=== PATIENT | female | born 1955 | race African-American/Black ===

== ENCOUNTER 2019-09-29 00:35 | Observation (INO) | payer MEDICARE ==
[2019-09-29] MEDS ORDERED: Midazolam HCl 2 mg/2 ml Vial ONE (00:56)
[2019-09-29] MEDS ORDERED: Nitroglycerin 2% Ointment 1 INCH/1 GM Packet ONE (00:56)
[2019-09-29] MEDS ORDERED: Aspirin Chewable 81 MG TAB ONE (00:56)
[2019-09-29 01:05] LABS: #Basophils 0.1 thou/uL (0.0-0.2); #Eosinphils 0.1 thou/uL (0.0-0.7); #Lymphocytes 2.8 thou/uL (1.20-3.40); #Monocytes 0.6 thou/uL (0.11-0.59); #Neutrophils 6.3 thou/uL (1.40-6.50); %Basophils 1.3 % (0.0-1.0); %Eosinophils 0.6 % (0.0-10.0); %Lymphocytes 28.1 % (21.0-51.0); %Monocytes 6.4 % (0.0-10.0); %Neutrophils 63.7 % (42.0-75.0); Hemoglobin 12.3 g/dL (12.0-16.0); Mean Corpuscular HGB CONC 31.3 g/dL (32.0-36.0); Mean Corpuscular Volume 76.8 fL (78.0-98.0); Mean Platelet Volume 9.7 fL (7.4-10.4); Platelet Count 226 thou/uL (130-400); RBC Distribution Width 16.9 % (11.5-14.5); Red Blood Cell (RBC) Count 5.14 mill/uL (4.20-5.40); White Blood Cell (WBC) Count 9.9 thou/uL (4.8-10.8)
[2019-09-29 01:25] LABS: ALT (SGPT) 29 U/L (8-55); AST (SGOT) 42 U/L (5-34); Albumin 4.8 g/dL (3.4-4.8); Alkaline Phosphatase 111 U/L (40-110); Anion Gap 20 mmol/L (10-20); BUN (Urea Nitrogen) 11 mg/dL (9.8-20.1); Bilirubin, Total 0.5 mg/dL (0.2-1.2); Calc. Creatinine Clearance 0 mL/min (70-130); Calcium 9.7 mg/dL (7.8-10.44); Carbon Dioxide 19 mmol/L (23-31); Chloride 103 mmol/L (98-107); Estimated GFR-MDRD 50; Globulin 3.7 g/dL (2.4-3.5); Glucose 142 mg/dL (80-115); Potassium 4.4 mmol/L (3.5-5.1); Protein, Total 8.5 g/dL (6.0-8.3); Sodium 138 mmol/L (136-145)
[2019-09-29] MEDS ORDERED: Nitroglycerin 0.4 MG TAB (25 Tab Bottle) PO PRN (03:24)
[2019-09-29] MEDS ORDERED: Dextrose 5% in Water 1,000 ML IV PRN (03:26)
[2019-09-29] MEDS ORDERED: HumaLOG 300 UNITS/3 ML VIAL SC PRN ×2 (03:26)
[2019-09-29] MEDS ORDERED: Dextrose 50% Abboject 50 ML SYRINGE SLOW IVP PRN (03:26)
[2019-09-29] MEDS ORDERED: Diazepam 5 MG TAB PO PRN (03:43)
[2019-09-29] MEDS ORDERED: Thiamine HCl 200 MG/2 ML VIAL IM SCH (03:45)
[2019-09-29] MEDS ORDERED: Diazepam 5 MG TAB PO SCH (03:45)
[2019-09-29 04:05] LABS: #Lymphocytes 1.6 thou/uL (1.20-3.40); #Monocytes 0.6 thou/uL (0.11-0.59); #Neutrophils 6.1 thou/uL (1.40-6.50); %Basophils 0.5 % (0.0-1.0); %Eosinophils 0.6 % (0.0-10.0); %Lymphocytes 18.5 % (21.0-51.0); %Monocytes 7.4 % (0.0-10.0); %Neutrophils 73.1 % (42.0-75.0); Hemoglobin 11.7 g/dL (12.0-16.0); Mean Corpuscular HGB CONC 31.9 g/dL (32.0-36.0); Mean Corpuscular Hemoglobin 24.5 pg (27.0-31.0); Mean Corpuscular Volume 76.6 fL (78.0-98.0); Mean Platelet Volume 9.4 fL (7.4-10.4); Platelet Count 209 thou/uL (130-400); RBC Distribution Width 16.5 % (11.5-14.5); White Blood Cell (WBC) Count 8.4 thou/uL (4.8-10.8)
[2019-09-29] MEDS ORDERED: Lorazepam 2 MG/ML VIAL ONE (04:12)
[2019-09-29 04:35] LABS: ALT (SGPT) 23 U/L (8-55); AST (SGOT) 37 U/L (5-34); Albumin 4.4 g/dL (3.4-4.8); Alcohol Less than 10 mg/dL (Less than 10); Alkaline Phosphatase 101 U/L (40-110); Anion Gap 16 mmol/L (10-20); BUN (Urea Nitrogen) 9 mg/dL (9.8-20.1); Bilirubin, Total 0.5 mg/dL (0.2-1.2); Calc. Creatinine Clearance 0 mL/min (70-130); Calcium 9.2 mg/dL (7.8-10.44); Carbon Dioxide 22 mmol/L (23-31); Chloride 103 mmol/L (98-107); Cholesterol 218 mg/dl (< 200 Desired); Estimated GFR-MDRD 73; Globulin 3.3 g/dL (2.4-3.5); Glucose 128 mg/dL (80-115); Potassium 4.4 mmol/L (3.5-5.1); Protein, Total 7.7 g/dL (6.0-8.3); Sodium 137 mmol/L (136-145); Triglycerides 54 mg/dL (Less than 150)
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
[2019-09-29 04:52] LABS: HDL Cholesterol 152 mg/dL (>60 Neg Risk)
[2019-09-29 04:54] LABS: Cardiac Risk 1.4 (Less than 4.5)
[2019-09-29 04:56] LABS: LDL Cholesterol, Calculated 55 mg/dL
[2019-09-29 07:42] VITALS: BMI 21.1
--- NOTE | 2019-09-29 07:44 | RAD ---
EXAM: Single view of the chest HISTORY: Chest pain COMPARISON: None FINDINGS: Single view of the chest shows a normal sized cardiomediastinal silhouette. There is no dong dence of consolidation, mass, or pleural effusion. The bones are unremarkable IMPRESSION: No evidence of acute cardiopulmonary disease
[2019-09-29] MEDS ORDERED: ADENOSINE 60 MG/20 ML VIAL ONE (10:53)
[2019-09-29 13:16] LABS: SARS-CoV-2 MS2 Positive; SARS-CoV-2 N Gene Negative; SARS-CoV-2 S Gene Negative; SARS-CoV-2 by NAA Not Detected (NotDetected); SARS-CoV-2 orf1ab Negative
--- NOTE | 2019-09-29 14:02 | NM ---
NUCLEAR MEDICINE CARDIAC MYOCARDIAL PERFUSION SPECT EJECTION FRACTION STUDY WALL MOTION CINE: DATE: 09/29/2019 HISTORY: 63-year-old hypertensive diabetic female with family history of coronary artery disease presents with chest pain TECHNIQUE: Number of days: 1 Rest study: Not performed Pharmacologic stress: Adenosine dose: 35.1 mg Stress study: Technetium 99m-sestamibi (Cardiolite) dose: 27.7 mCi FINDINGS: CARDIAC (MYOCARDIAL PERFUSION) SPECT Distribution of sestamibi is homogeneous throughout the left ventricle, with no myocardial perfusion defects. EJECTION FRACTION STUDY Left ventricular EF = 85 % WALL MOTION CINE The left ventricular wall motion is normal. There is normal systolic wall thickening. IMPRESSION: Normal.
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
[2019-09-29] MEDS ORDERED: tiZANidine HCl 4 MG TAB PO PRN (14:48)
[2019-09-29 17:06] LABS: Bacteria/HPF None Seen HPF (None Seen); Bilirubin Negative (Negative); Blood, Urine Negative (Negative); Clarity Clear (Clear); Glucose, Urine (Dipstick) 500 mg/dL (Negative); Ketone, Urine Negative (Negative); Leukocyte Negative Leu/uL (Negative); Nitrite Negative (Negative); Protein, Urine (Dipstick) Negative (Neg-Trace); RBC/HPF 0-3 HPF (0-3); Specific Gravity, Urine 1.014 (1.002-1.036); Squamous Epithelial 0-3 HPF (0-3); Urobilinogen Normal mg/dL (Less than 2); WBC/HPF 0-3 HPF (0-3)
[2019-09-29 17:08] LABS: Urine Culture Reflex No No
[2019-09-29 17:25] LABS: Amphetamine Not Detected (NotDetected); Barbiturates Screen Not Detected (NotDetected); Benzodiazepine Screen Detected (NotDetected); Cocaine Metabolite Screen Not Detected (NotDetected); Medtox Control Line Valid? VALID (VALID); Medtox Reader # READER 4; Methadone Not Detected (NotDetected); Methamphetamine Not Detected (NotDetected); Opiate Screen Not Detected (NotDetected); Oxycodone Screen Not Detected (NotDetected); Phencyclidine (PCP) Not Detected (NotDetected); THC/Cannabinoid Screen Not Detected (NotDetected); Tricyclic Screen Not Detected (NotDetected)
[2019-09-29] MEDS: Multivitamin W/ Minerals 1 TAB PO SCH (17:37)
[2019-09-29] MEDS: Pantoprazole 40 MG VIAL IVP SCH ×2 (17:37→21:29)
[2019-09-29] MEDS: Folic Acid 1 MG TAB PO SCH (17:37)
[2019-09-29] MEDS: Gabapentin 300 MG CAP PO SCH ×2 (17:37→21:27)
[2019-09-29] MEDS ORDERED: Lisinopril 20 MG TAB PO SCH (21:00)
[2019-09-29] MEDS ORDERED: Prazosin HCl 1 MG CAP PO SCH (21:00)
[2019-09-29] MEDS ORDERED: [UNRECOGNIZED DRUG - OTHER] PO SCH (21:00)
[2019-09-29] MEDS ORDERED: BENAZEPRIL PO SCH (21:00)
[2019-09-29] MEDS ORDERED: AMLODIPINE BESYLATE PO SCH (21:00)
[2019-09-29] MEDS ORDERED: Amlodipine 5 MG TAB PO SCH (21:00)
[2019-09-30 03:57] LABS: Hemoglobin 11.7 g/dL (12.0-16.0); Mean Corpuscular HGB CONC 31.4 g/dL (32.0-36.0); Mean Corpuscular Hemoglobin 24.7 pg (27.0-31.0); Mean Corpuscular Volume 78.5 fL (78.0-98.0); Mean Platelet Volume 9.6 fL (7.4-10.4); Platelet Count 185 thou/uL (130-400); Red Blood Cell (RBC) Count 4.73 mill/uL (4.20-5.40); White Blood Cell (WBC) Count 5.2 thou/uL (4.8-10.8)
[2019-09-30] MEDS ORDERED: Diazepam 5 MG TAB PO PRN (04:00)
[2019-09-30 04:24] LABS: ALT (SGPT) 19 U/L (8-55); AST (SGOT) 28 U/L (5-34); Alkaline Phosphatase 91 U/L (40-110); Anion Gap 13 mmol/L (10-20); BUN (Urea Nitrogen) 11 mg/dL (9.8-20.1); Bilirubin, Total 0.4 mg/dL (0.2-1.2); Calc. Creatinine Clearance 69 mL/min (70-130); Carbon Dioxide 24 mmol/L (23-31); Chloride 100 mmol/L (98-107); Estimated GFR-MDRD 86; Globulin 3.2 g/dL (2.4-3.5); Glucose 132 mg/dL (80-115); Iron 60 ug/dL (50-170); Iron Binding Capacity, Total 424 mcg/dL (265-497); Potassium 3.9 mmol/L (3.5-5.1); Protein, Total 7.2 g/dL (6.0-8.3); Sodium 133 mmol/L (136-145)
[2019-09-30] MEDS ORDERED: Magnesium Oxide 400 MG TAB PO SCH (09:00)
[2019-09-30] MEDS ORDERED: Hydrochlorothiazide 25 MG TAB PO SCH (09:00)
[2019-09-30] MEDS ORDERED: Citalopram 20 MG TAB PO SCH (09:00)
[2019-09-30] MEDS ORDERED: Thiamine 100 MG TAB PO SCH (09:00)
[2019-09-30] MEDS: Gabapentin 300 MG CAP PO SCH ×2 (10:04→14:55)
[2019-09-30] MEDS: Multivitamin W/ Minerals 1 TAB PO SCH (10:05)
[2019-09-30] MEDS: Pantoprazole 40 MG VIAL IVP SCH (10:06)
[2019-09-30] MEDS: Folic Acid 1 MG TAB PO SCH (10:06)
[2019-09-30] MEDS ORDERED: Sodium Chloride 0.9% 500 ML IV SCH (10:15)
[2019-09-30 18:18] VITALS: BP 167/87; TEMP 97.8
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
== END 2019-09-30 17:02 | disposition home or self-care (01) ==
LOC: ERS 00:35 → ERHOLD 02:50 → 2NO 13:49
PROVIDERS: ADMIT Internal Medicine; ATTEND Internal Medicine
DX: R07.89 Other chest pain (principal); F10.239 Alcohol dependence with withdrawal, unspecified; I95.1 Orthostatic hypotension; I11.0 Hypertensive heart disease with heart failure; I50.30 Unspecified diastolic (congestive) heart failure; R42 Dizziness and giddiness; R25.1 Tremor, unspecified; E11.9 Type 2 diabetes mellitus without complications; F32.9 Major depressive disorder, single episode, unspecified; Z88.0 Allergy status to penicillin; Z79.899 Other long term (current) drug therapy
CPT/HCPCS: 71045; 78452; 80053; 80061; 80306; 80307; 81001; 82140; 82728; 82962 ×2; 83540; 83550; 83880; 84439; 84484 ×2; 85027; 85379; 93005; 93017; 93306; 94760; 96374; 96375; 97139 ×2; 99285; A9500; U0003; 36415; 36416; 84443; 85025; 87635; 96376; C9113; G0378; J0153; J2060; J2250; J3411; J3475; J3490

== ENCOUNTER 2019-12-24 09:54 | Emergency (ER) | payer MEDICARE ==
[2019-12-24] MEDS ORDERED: Ondansetron PF 4 MG/2 ML Vial ONE (10:13)
[2019-12-24] MEDS ORDERED: Ketorolac Tromethamine 30 MG/ML VIAL ONE (10:17)
[2019-12-24 10:53] LABS: Bilirubin Negative (Negative); Blood, Urine 1+ (Negative); Clarity Clear (Clear); Glucose, Urine (Dipstick) Normal (Negative); Ketone, Urine 40 mg/dL (Negative); Leukocyte Negative Leu/uL (Negative); Nitrite Negative (Negative); Protein, Urine (Dipstick) Negative (Neg-Trace); Specific Gravity, Urine 1.013 (1.002-1.036); Urobilinogen Normal mg/dL (Less than 2)
[2019-12-24 10:54] LABS: RBC/HPF 0-3 HPF (0-3); Squamous Epithelial 0-3 HPF (0-3); WBC/HPF 0-3 HPF (0-3)
[2019-12-24 11:03] LABS: Bacteria/HPF 1+ HPF (None Seen); Yeast-Budding 1+ HPF (None Seen)
[2019-12-24 11:19] LABS: ALT (SGPT) 30 U/L (8-55); AST (SGOT) 90 U/L (5-34); Albumin 4.2 g/dL (3.4-4.8); Alkaline Phosphatase 82 U/L (40-110); Anion Gap 21 mmol/L (10-20); BUN (Urea Nitrogen) 8 mg/dL (9.8-20.1); Bilirubin, Total 0.4 mg/dL (0.2-1.2); Calc. Creatinine Clearance 0 mL/min (70-130); Calcium 8.5 mg/dL (7.8-10.44); Carbon Dioxide 15 mmol/L (23-31); Chloride 105 mmol/L (98-107); Estimated GFR-MDRD Greater than 90; Globulin 2.9 g/dL (2.4-3.5); Glucose 122 mg/dL (80-115); Lipase 39 U/L (8-78); Potassium 3.9 mmol/L (3.5-5.1); Protein, Total 7.1 g/dL (6.0-8.3)
[2019-12-24 11:20] LABS: #Basophils 0.1 thou/uL (0.0-0.2); #Lymphocytes 0.6 thou/uL (1.20-3.40); #Monocytes 0.3 thou/uL (0.11-0.59); #Neutrophils 7.7 thou/uL (1.40-6.50); %Basophils 0.8 % (0.0-1.0); %Eosinophils 0.2 % (0.0-10.0); %Lymphocytes 7.4 % (21.0-51.0); %Neutrophils 88.7 % (42.0-75.0); Hemoglobin 11.5 g/dL (12.0-16.0); Mean Corpuscular HGB CONC 31.6 g/dL (32.0-36.0); Mean Corpuscular Hemoglobin 25.6 pg (27.0-31.0); Mean Platelet Volume 9.2 fL (7.4-10.4); Platelet Count 180 thou/uL (130-400); RBC Distribution Width 18.3 % (11.5-14.5); Red Blood Cell (RBC) Count 4.48 mill/uL (4.20-5.40); White Blood Cell (WBC) Count 8.7 thou/uL (4.8-10.8)
[2019-12-24 11:42] LABS: CKMB 2.8 ng/mL (0-6.6)
[2019-12-24 11:55] LABS: Sodium 137 mmol/L (136-145)
[2019-12-24] MEDS ORDERED: Promethazine HCl 25 MG/ML VIAL ONE (12:28)
[2019-12-24] MEDS ORDERED: Morphine 4 MG/ML VIAL ONE (12:28)
--- NOTE | 2019-12-24 12:42 | CT ---
CT Abdomen Pelvis W Con History: Abdominal pain Comparison: None. Findings: Lung bases are clear. No pericardial effusion. Gastric bypass surgery. Common bile duct measures 1 mm. No significant intrahepatic biliary dilatation. The pancreatic duct is mildly distended although still measures just under 3 mm. Focal insinuation of fat between the pancreatic lobular parenchyma is appearance of a small round mas s axial image 24. Mildly thickened sigmoid colon with low-grade vascular mesenteric congestion. No dilated loops of large or small bowel. The appendix is visualized and is normal. Trace free fluid in the pelvis. No acute osseous abnormality. Aortic contour is normal. Celiac trunk and superior mesenteric arteries are patent. Inferior mesenteric artery is patent. Small hiatal hernia. Ribs are intact. No hydronephrosis. Symmetric bilateral renal enhancement of the superior pole cyst on the left measur ing 15 mm. Spleen is unremarkable along with the adrenal glands. Impression: 1. Mild vascular congestion and edema within the sigmoid mesentery some low-grade wall thickening of the descending colon/sigmoid junction may reflect early findings of colitis. Nonemergent colonoscopic evaluation after treatment of the acute symptomatology recommended. 2. [place] effect common bile duct without intrahepatic biliary dilatation. 3. Small fat-containing supraumbilical ventral hernia with a thin 4 mm neck. No evidence for adjacent inflammation. 4. Prior gastric bypass surgery without evidence for obstruction.
[2019-12-24] MEDS ORDERED: Iopamidol-370 76% 500 ML 1 ML ONE (15:06)
--- NOTE | 2020-01-01 13:13 | EKG ---
Test Reason : ABD PAIN Blood Pressure : / mmHG Vent. Rate : 097 BPM Atrial Rate : 097 BPM P-R Int : 132 ms QRS Dur : 074 ms QT Int : 356 ms P-R-T Axes : 061 058 012 degrees QTc Int : 452 ms Normal sinus rhythm Septal infarct , age undetermined Abnormal ECG Confirmed by MANFRED CERVANTES DO ([id number]), communications editor JEAN CLAUDE ALFARO ([id number]) on 01/01/2020 1:12:56 PM Referred By: BILLY Confirmed By:MANFRED CERVANTES DO
== END 2019-12-24 14:55 | disposition home or self-care (01) ==
LOC: ERS 09:54
DX: R10.30 Lower abdominal pain, unspecified (principal); K52.9 Noninfective gastroenteritis and colitis, unspecified; I10 Essential (primary) hypertension; E11.9 Type 2 diabetes mellitus without complications; F32.9 Major depressive disorder, single episode, unspecified; F41.9 Anxiety disorder, unspecified; Z79.899 Other long term (current) drug therapy
CPT/HCPCS: 74177; 80053; 81003; 81015; 82553; 83690; 84484; 85025; 93005; 96374; 96375; J1885; J2270; J2405; J2550; Q9967

== ENCOUNTER 2020-01-08 12:11 | Inpatient (IN) | payer MEDICARE ==
[2020-01-08] MEDS ORDERED: Pantoprazole 40 MG VIAL ONE ×2 (13:26→14:25)
--- NOTE | 2020-01-08 13:52 | CT ---
Exam: Head CT without contrast HISTORY: Dizziness COMPARISON: none FINDINGS: Hemorrhage: No intraparenchymal hemorrhage or extra-axial hematoma. Brain parenchyma: Cortical lackey-white matter differentiation is preserved. No mass effect or midline shift. Basilar cisterns are patent. Ventricular system: Ventricles and sulci are patent and symmetric. Calvarium: Intact. Sinuses and mastoid air cells: Adequate aeration. IMPRESSION: No acute intracranial process.
[2020-01-08 14:08] LABS: #Basophils 0.1 thou/uL (0.0-0.2); #Eosinphils 0.1 thou/uL (0.0-0.7); #Lymphocytes 1.4 thou/uL (1.20-3.40); #Monocytes 0.6 thou/uL (0.11-0.59); #Neutrophils 9.2 thou/uL (1.40-6.50); %Basophils 0.7 % (0.0-1.0); %Eosinophils 0.9 % (0.0-10.0); %Lymphocytes 11.9 % (21.0-51.0); %Monocytes 5.7 % (0.0-10.0); %Neutrophils 80.8 % (42.0-75.0); Hemoglobin 7.5 g/dL (12.0-16.0); Mean Corpuscular HGB CONC 31.6 g/dL (32.0-36.0); Mean Corpuscular Hemoglobin 25.5 pg (27.0-31.0); Mean Corpuscular Volume 80.5 fL (78.0-98.0); Mean Platelet Volume 7.9 fL (7.4-10.4); Platelet Count 498 thou/uL (130-400); RBC Distribution Width 18.6 % (11.5-14.5); Red Blood Cell (RBC) Count 2.95 mill/uL (4.20-5.40); White Blood Cell (WBC) Count 11.3 thou/uL (4.8-10.8)
[2020-01-08 14:21] LABS: ALT (SGPT) 9 U/L (8-55); AST (SGOT) 13 U/L (5-34); Albumin 3.8 g/dL (3.4-4.8); Alkaline Phosphatase 83 U/L (40-110); Anion Gap 19 mmol/L (10-20); BUN (Urea Nitrogen) 72 mg/dL (9.8-20.1); Bilirubin, Total 0.2 mg/dL (0.2-1.2); Calc. Creatinine Clearance 0 mL/min (70-130); Calcium 9.1 mg/dL (7.8-10.44); Carbon Dioxide 15 mmol/L (23-31); Chloride 111 mmol/L (98-107); Estimated GFR-MDRD 17; Globulin 3.4 g/dL (2.4-3.5); Glucose 112 mg/dL (80-115); Potassium 5.2 mmol/L (3.5-5.1); Protein, Total 7.2 g/dL (6.0-8.3); Sodium 140 mmol/L (136-145)
[2020-01-08 14:40] LABS: Bilirubin Negative (Negative); Blood, Urine Negative (Negative); Clarity Clear (Clear); Glucose, Urine (Dipstick) Normal (Negative); Ketone, Urine 10 mg/dL (Negative); Leukocyte Negative Leu/uL (Negative); Nitrite Negative (Negative); Protein, Urine (Dipstick) Negative (Neg-Trace); Specific Gravity, Urine 1.013 (1.002-1.036); Urobilinogen Normal mg/dL (Less than 2)
[2020-01-08] MEDS ORDERED: Pantoprazole 80 MG, Admixture Fee 1 EACH in Sodium Chloride 0.9% 100 ML IVPB SCH (15:00)
[2020-01-08 18:20] LABS: INR-International Normal Ratio 1.1; PTT 24.7 sec (22.9-36.1); Prothrombin Time 14.8 sec (12.0-14.7)
[2020-01-08] MEDS ORDERED: Octreotide Acetate 1,250 MCG in Sodium Chloride 0.9% 250 ML 250 ML IVPB SCH (18:30)
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
[2020-01-08] MEDS ORDERED: Ondansetron ODT 4 MG TAB PO PRN (19:15)
[2020-01-08] MEDS ORDERED: Acetaminophen 650 MG Suppository PR PRN (19:15)
[2020-01-08] MEDS ORDERED: Guaifenesin DM 100-10/5 ML UDCUP PO PRN (19:15)
[2020-01-08] MEDS ORDERED: Pantoprazole 80 MG in Sodium Chloride 0.9% 100 ML IVPB SCH (19:15)
[2020-01-08] MEDS ORDERED: Senokot S 8.6-50 MG TAB PO PRN (19:15)
[2020-01-08] MEDS ORDERED: Ondansetron PF 4 MG/2 ML Vial IVP PRN (19:15)
[2020-01-08] MEDS ORDERED: Diazepam 5 MG TAB PO PRN (19:18)
[2020-01-08] MEDS ORDERED: Thiamine HCl 200 MG/2 ML VIAL IM SCH (19:30)
[2020-01-08] MEDS: Sodium Chloride 0.9% 1,000 ML IV SCH (21:05)
--- NOTE | 2020-01-08 21:54 | CON ---
DATE OF CONSULTATION: 01/08/2020 REASON FOR CONSULTATION: Melena, hematemesis with history of cirrhosis. CONSULTING PROVIDER: Dr. Marcos Parikh. HISTORY OF PRESENT ILLNESS: The patient is a 64-year-old female with past medical history of hypertension; diabetes; anxiety; depression; alcohol abuse; obesity, status post gastric bypass in 2008; and cirrhosis, presenting with complaints of abdominal pain, hematemesis, and melena. She states that she was in her usual state of health until approximately 2 weeks ago when she had acute onset of lower abdominal pain affecting the right and left lower quadrants. She was subsequently seen in the [facility] for further evaluation and had a CT scan at that time showing evidence of possible sigmoid colitis. She was ultimately placed on ciprofloxacin and metronidazole and after 3 to 4 days, had complete resolution of her abdominal pain. However, she was seen by her primary care physician in the meantime with discontinuation of the ciprofloxacin. With only taking the metronidazole, the patient began to have increasing nausea and vomiting to the point where the patient vomited up bright red blood only once in addition to the appearance of having dark black liquid stools over the last few days. She states that over the last 3 days, she would have approximately 15 to 20 small volume solid to semi-solid black stools per day with increased difficulty in wiping herself and cleaning herself afterwards. She denies any overt hematochezia or bright red blood per rectum, however, and she also states that her abdominal pain had completely resolved by this time as well. She is currently taking tizanidine for chronic pain in addition to gabapentin. She does also take a baby aspirin every day, but denies any further use of NSAIDs. She also states that she has been drinking approximately one glass of wine daily in addition to a mixed drink every 2 to 3 days knowing that this is deleterious with a patient who has cirrhosis. She also endorses increased nausea, but no vomiting since the initial episode of hematemesis. She currently denies any fevers, chills, abdominal pain, dysphagia, odynophagia, or weight loss. However, with the increasing black stools and concern for bleeding and in addition to increased fatigue, it prompted the patient to go to the [facility] ER for further evaluation. On evaluation during this ER visit, she was noted to have a decrease in her hemoglobin and hematocrit with an approximate 3 to 4 units decrease raising concern for active GI bleeding. She was subsequently admitted to the hospital for further evaluation. REVIEW OF SYSTEMS: A 10-category review of systems was obtained with all responses negative except for the pertinent positives as listed in HPI. PAST MEDICAL HISTORY: As per HPI. PAST SURGICAL HISTORY: Gastric bypass in 2008 (unknown type of bypass). FAMILY HISTORY: Denies any GI malignancies. SOCIAL HISTORY: Drinks approximately one glass of wine daily and one mixed drink every 2 to 3 days (however, during her last ER visit, she was drinking 3 glasses of wine daily). She denies any tobacco or illicit drug use. OUTPATIENT MEDICATIONS: Reviewed. ALLERGIES: PENICILLIN. PHYSICAL EXAMINATION: VITAL SIGNS: Temperature was not placed in the chart, but heart rate was 86, blood pressure 156/86, respiratory rate 16, saturating 97% on room air. GENERAL: The patient was lying in bed, in no acute distress. Alert and oriented x4. HEENT: Normocephalic and atraumatic. NECK: Supple. No JVD or scleral icterus noted. CARDIOVASCULAR: Regular rate and rhythm with no discernible murmurs, gallops, or rubs. RESPIRATORY: Clear to auscultation bilaterally with no discernible wheezes or rales. ABDOMEN: Normoactive bowel sounds. Soft, nondistended. Mild tenderness to palpation in the midepigastric region. EXTREMITIES: No cyanosis, clubbing, or edema. LABORATORY DATA: CBC with a white blood cell count of 11.3, hemoglobin 7.5, hematocrit 23.7, platelets 498, MCV 80, RDW 18. Chemistry with a sodium of 140, potassium 5.2, chloride 111, CO2 of 15, BUN 72, creatinine 3.3, glucose 112, AST 13, ALT 9, alkaline phosphatase 83, total bilirubin 0.2, albumin 3.8. IMAGING DATA: CT of the abdomen and pelvis was obtained on December 24, 2019, which showed surgical change consistent with gastric bypass. She did have some possible small pancreatic mass within the head of the pancreas, but was incompletely determined/characterized. Mildly thickened mucosa or wall of the sigmoid colon was seen with low-grade vascular mesenteric congestion and she did also have the presence of a small hiatal hernia. ASSESSMENT AND PLAN: The patient is a 64-year-old female with past medical history of hypertension; diabetes; anxiety; depression; alcohol abuse; obesity, status post gastric bypass and cirrhosis of the liver, presenting with hematemesis and melena concerning for gastrointestinal bleeding. 1. Gastrointestinal bleeding: The patient is presenting with a single episode of overt hematemesis in addition to multiple small volume black solid bowel movements over the last 2 to 3 days. This was also associated with a decrease in her H and H when compared to 2 weeks ago and when seen with an elevated BUN to creatinine ratio in addition to mild hyperkalemia, it is strongly concerning for an upper gastrointestinal bleed. She has never had an upper endoscopy since the diagnosis of cirrhosis, so it is unknown whether or not this patient even has esophageal varices. Given her platelet count of 498, it is less likely for the formation, but should be prevented against nonetheless. Recommendations: a. Would continue to trend her H and H and transfuse as necessary to maintain an H and H of 09/13. b. Continue to monitor clinically for signs of active GI bleeding. c. Agree with placing the patient on a PPI drip. d. Would place the patient on octreotide drip in addition to placing her on ciprofloxacin 400 b.i.d. for esophageal varices and infection prophylaxis respectively (the patient has a penicillin allergy). e. Would stop any SSRIs at this time given the increased risk of bleeding associated with these medications, especially with NSAIDs. f. We will make the patient n.p.o. at midnight with plans for upper endoscopy tomorrow morning for further evaluation. Further recommendations to follow upper endoscopy. 2. Cirrhosis: The patient is presenting with a previous diagnosis of cirrhosis that was diagnosed in 2012 with unknown findings at that time as the patient was being cared for at the [facility] in [place]. Over the next few years, the patient followed with a gyn/train dispatcher in [place], but after losing her PCP has not gone back for any further followup. At this point, it is unknown if she has esophageal varices or portal hypertensive gastropathy as a result of her cirrhosis. However, she did have a colonoscopy approximately 4-1/2 years ago with normal findings per patient. Currently, she denies any history of ascites, hepatic encephalopathy, or lower extremity edema. Recommendations: a. I will need to confer with Radiology about cirrhotic morphology on a most recent CT scan and confirm the diagnosis via that. b. Per imaging, she does not have any evidence of splenomegaly either making the likelihood of portal hypertension less so. c. Would attempt to obtain the records from [facility], but this is more port for outpatient purposes. d. Will be undergoing EGD tomorrow for screening for esophageal varices. e. The patient will need followup as an outpatient after this inpatient hospitalization for further management of her cirrhosis (if confirmed). We will continue to follow. Please call with any questions. Job ID: [id number]
[2020-01-09] MEDS ORDERED: Diazepam 5 MG TAB PO PRN (04:00)
[2020-01-09 06:21] LABS: #Basophils 0.1 thou/uL (0.0-0.2); #Eosinphils 0.1 thou/uL (0.0-0.7); #Lymphocytes 2.1 thou/uL (1.20-3.40); #Monocytes 0.8 thou/uL (0.11-0.59); #Neutrophils 6.5 thou/uL (1.40-6.50); %Basophils 0.7 % (0.0-1.0); %Eosinophils 1.3 % (0.0-10.0); %Lymphocytes 21.7 % (21.0-51.0); %Monocytes 7.9 % (0.0-10.0); %Neutrophils 68.4 % (42.0-75.0); Hemoglobin 6.7 g/dL (12.0-16.0); Mean Corpuscular HGB CONC 31.2 g/dL (32.0-36.0); Mean Corpuscular Hemoglobin 26.4 pg (27.0-31.0); Mean Corpuscular Volume 84.6 fL (78.0-98.0); Mean Platelet Volume 7.9 fL (7.4-10.4); Platelet Count 430 thou/uL (130-400); RBC Distribution Width 17.8 % (11.5-14.5); Red Blood Cell (RBC) Count 2.54 mill/uL (4.20-5.40); White Blood Cell (WBC) Count 9.5 thou/uL (4.8-10.8)
[2020-01-09 06:45] LABS: Anion Gap 14 mmol/L (10-20); BUN (Urea Nitrogen) 75 mg/dL (9.8-20.1); Calc. Creatinine Clearance 24 mL/min (70-130); Calcium 8.2 mg/dL (7.8-10.44); Carbon Dioxide 17 mmol/L (23-31); Chloride 113 mmol/L (98-107); Estimated GFR-MDRD 22; Glucose 107 mg/dL (80-115); Potassium 5.1 mmol/L (3.5-5.1); Sodium 139 mmol/L (136-145)
[2020-01-09] MEDS: Sodium Chloride 0.9% 1,000 ML IV SCH (08:58)
[2020-01-09] MEDS: Thiamine 100 MG TAB PO SCH (09:01)
[2020-01-09] MEDS: Folic Acid 1 MG TAB PO SCH (09:01)
[2020-01-09] MEDS: Multivitamin W/ Minerals 1 TAB PO SCH (09:01)
[2020-01-09] MEDS: Magnesium Oxide 400 MG TAB PO SCH (09:01)
[2020-01-09 10:27] LABS: SARS-CoV-2 MS2 Positive; SARS-CoV-2 N Gene Negative; SARS-CoV-2 S Gene Negative; SARS-CoV-2 by NAA Not Detected (NotDetected); SARS-CoV-2 orf1ab Negative
[2020-01-09] MEDS: Sodium Bicarbonate 150 MEQ in Dextrose 5% in Water 1,000 ML IV SCH (12:14)
[2020-01-09] MEDS ORDERED: PROPOFOL 200 MG/20 ML VIAL ONE (13:23)
--- NOTE | 2020-01-09 13:56 | PDOC.HOSPP ---
- Subjective Encounter Date: 01/09/20 Encounter Time: 10:15 Subjective: says is still having black stools, no nausea is npo for egd today no hematemesis or sob or abd pain - Objective Vital Signs & Weight: Vital Signs (12 hours) Temp Pulse Pulse Resp BP BP BP 01/09/20 12:05 98.4 F 99 20 142/82 H 01/09/20 09:20 98.3 F 80 20 135/74 01/09/20 07:23 97.8 F 85 18 124/77 01/09/20 04:11 97.9 F 68 18 101/64 101/64 Pulse Ox 01/09/20 12:05 97 01/09/20 09:20 98 01/09/20 07:23 100 01/09/20 04:11 100 Weight Weight 157 lb 13.616 oz I&O: 01/08/20 01/09/20 01/10/20 06:59 06:59 06:59 Intake Total 1449 0 Balance 1449 0 Result Diagrams: 01/09/20 06:02 01/09/20 06:02 Hospitalist ROS - Medication Medications: Active Medications Generic Name Dose Route Start Last Admin Trade Name Freq PRN Reason Stop Dose Admin Folic Acid 1 mg 01/09/20 09:00 01/09/20 09:01 Folic Acid 1 Mg Tab PO 1 mg DAILY RANDY Administration Ciprofloxacin/Dextrose 400 mg/ 200 mls @ 200 mls/hr 01/08/20 21:00 01/09/20 08:58 Device IVPB 200 mls Q12HR RANDY Administration Sodium Bicarbonate 150 meq/ 1,150 mls @ 100 mls/hr 01/09/20 11:00 01/09/20 12:14 Dextrose/Water IV 1,150 mls INF RANDY Administration Iron/Minerals/Multivitamins 1 tab 01/09/20 09:00 01/09/20 09:01 Multivitamin W/ Minerals 1 Tab PO 1 tab DAILY RANDY Administration Magnesium Oxide 400 mg 01/09/20 09:00 01/09/20 09:01 Magnesium Oxide 400 Mg Tab PO 400 mg DAILY RANDY Administration Thiamine HCl 100 mg 01/09/20 09:00 01/09/20 09:01 Thiamine 100 Mg Tab PO 100 mg DAILY RANDY Administration - Exam General Appearance: awake alert Eye: PERRL, anicteric sclera ENT: no oropharyngeal lesions, moist mucosa Neck: supple, no JVD Heart: RRR, no murmur Respiratory: no wheezes, no rales Gastrointestinal: soft, non-tender, non-distended, normal bowel sounds Extremities: no cyanosis, no edema Neurological: cranial nerve grossly intact, no focal deficits Psychiatric: normal affect, A&O x 3 Hosp A/P (1) GI bleed Code(s): K92.2 - GASTROINTESTINAL HEMORRHAGE, UNSPECIFIED Status: Acute Qualifiers: GI bleed type/associated pathology: unspecified gastrointestinal hemorrhage type Qualified Code(s): K92.2 - Gastrointestinal hemorrhage, unspecified (2) Acute blood loss anemia Code(s): D62 - ACUTE POSTHEMORRHAGIC ANEMIA Status: Acute (3) NILAM (acute kidney injury) Code(s): N17.9 - ACUTE KIDNEY FAILURE, UNSPECIFIED Status: Acute (4) Alcohol abuse Code(s): F10.10 - ALCOHOL ABUSE, UNCOMPLICATED Status: Chronic (5) Cirrhosis of liver Code(s): K74.60 - UNSPECIFIED CIRRHOSIS OF LIVER Status: Chronic Qualifiers: Hepatic cirrhosis type: alcoholic cirrhosis Ascites presence: without ascites Qualified Code(s): K70.30 - Alcoholic cirrhosis of liver without ascites (6) HTN (hypertension) Code(s): I10 - ESSENTIAL (PRIMARY) HYPERTENSION Status: Chronic Qualifiers: Hypertension type: essential hypertension Qualified Code(s): I10 - Essential (primary) hypertension (7) Metabolic acidosis Code(s): E87.2 - ACIDOSIS Status: Acute - Plan will recieve 2nd unit of prbc today for egd today counselled reg complete cessation of alcohol continue protonix, octreotide drip, bicarb with iv fluids hemostable
--- NOTE | 2020-01-09 15:07 | OP ---
DATE OF PROCEDURE: 01/09/2020 PROCEDURE PERFORMED: Esophagogastroduodenoscopy with control of hemorrhage. INDICATION FOR PROCEDURE: Melena and hematemesis. DESCRIPTION OF PROCEDURE: After the risks and benefits of the procedure were explained to the patient including risks of bleeding, infection, perforation, reactions to anesthesia, aspiration, and/or pain, informed consent was obtained. The patient was then taken to the endoscopy suite, where she was maneuvered into the left lateral decubitus position, followed by introduction of deep sedation via propofol and anesthesia support. Once adequate sedation was achieved, the standard gastroscope was introduced into the mouth with the intubation of the esophagus, stomach, and the proximal jejunum with the findings listed below. The patient tolerated the procedure well, but did have a very transient bout of hypoxemia in the middle of the procedure that responded almost immediately to [id number]. Upon conclusion of the procedure, all equipment was removed from the patient and she was transferred to PACU in satisfactory condition. FINDINGS: Esophagus: Normal-appearing mucosa was seen in the proximal and mid esophagus; however, at the gastroesophageal junction/Z-line, there was mildly increased mucosal erythema in a circumferential pattern around the GE junction along the inferior aspect of the GE junction, there was an area of actively oozing blood that did actually stop with direct visualization. However, given her recent bouts of melena, this was intervened upon with argon plasma coagulation with good hemostasis achieved. Otherwise, the diaphragmatic pinch was seen at 44 cm while the gastroesophageal junction was seen at 42 cm denoting a 2 cm hiatal hernia. Otherwise, there was no evidence of erosions, ulcerations, or mass lesions. Stomach: Upon entry into the stomach, surgical change consistent with a Clyde-en-Y gastric bypass was seen. The gastric pouch itself was fairly small, but a clean based 4 to 5 mm ulcer was seen at the gastrojejunal anastomosis with a dark red spot in the middle of the ulceration itself. She did not have any adherent clot nor was there any evidence of active bleeding. However, given this red spot as a high-risk stigmata bleeding, it was intervened upon with bipolar cauterization with no bleeding at the end of the maneuver. Otherwise, a small retained staple was seen just superior to this ulceration, but no other abnormalities were found. The rest of the anastomosis looked very healthy with no evidence of further erosion, ulceration, or active/recent bleeding. Small bowel/jejunum: Upon intubation of the afferent limb, there was normal-appearing mucosa with a blind stump at the afferent side. Upon evaluation of the efferent limb to approximately 60 cm past the incisors, normal-appearing mucosa was seen without any evidence of active or recent bleeding. IMPRESSION: 1. LA grade A/B reflux mediated erosive esophagitis with mild oozing of blood at the GE junction, status post APC/argon plasma coagulation with good hemostasis achieved. 2. A 4 to 5 mm gastrojejunal anastomosis ulceration with high-risk stigmata of recent bleeding status post bipolar cauterization with good hemostasis. 3. A 2 cm hiatal hernia. 4. No evidence of esophageal or gastric varices. RECOMMENDATIONS: 1. Would continue to trend the patient's H and H and transfuse as necessary to maintain an H and H of 7/. 2. Continue to monitor clinically for signs of active GI bleeding. 3. We will continue patient on PPI, but can transfer from a drip to 40 mg IV b.i.d. 4. Would discontinue the octreotide drip given the lack of evidence showing esophageal or gastric varices. 5. Would continue the patient on ciprofloxacin 400 mg b.i.d. in light of a cirrhotic patient with GI bleed (with penicillin allergy). 6. Would place the patient on a full liquid diet and advance as tolerated. 7. If the patient continues to have melenic type stools or continued drop in her H and H, I would consider a tagged red cell scan for further evaluation and/or colonoscopy. We will continue to follow. Please call with any questions. Job ID: [id number]
[2020-01-09] MEDS: Pantoprazole 40 MG VIAL IVP SCH (20:57)
[2020-01-09] MEDS ORDERED: FLU VACC QS2020-21(65YR UP)/PF 240 MCG/0.7 ML SYRINGE IM ONE (21:00)
[2020-01-10] MEDS: Sodium Bicarbonate 150 MEQ in Dextrose 5% in Water 1,000 ML IV SCH (03:50)
[2020-01-10 06:25] LABS: Hemoglobin 7.3 g/dL (12.0-16.0); Mean Corpuscular HGB CONC 31.8 g/dL (32.0-36.0); Mean Corpuscular Hemoglobin 27.1 pg (27.0-31.0); Mean Corpuscular Volume 85.2 fL (78.0-98.0); Mean Platelet Volume 7.8 fL (7.4-10.4); Platelet Count 408 thou/uL (130-400); RBC Distribution Width 17.4 % (11.5-14.5); Red Blood Cell (RBC) Count 2.68 mill/uL (4.20-5.40)
[2020-01-10 06:30] LABS: INR-International Normal Ratio 1.1; Prothrombin Time 14.2 sec (12.0-14.7)
[2020-01-10 06:47] LABS: Albumin 2.9 g/dL (3.4-4.8); Anion Gap 10 mmol/L (10-20); BUN (Urea Nitrogen) 36 mg/dL (9.8-20.1); Calc. Creatinine Clearance 31 mL/min (70-130); Calcium 7.7 mg/dL (7.8-10.44); Carbon Dioxide 26 mmol/L (23-31); Chloride 108 mmol/L (98-107); Estimated GFR-MDRD 30; Glucose 135 mg/dL (80-115); Magnesium 1.8 mg/dL (1.6-2.6); Phosphorus 2.5 mg/dL (2.3-4.7); Potassium 4.3 mmol/L (3.5-5.1); Sodium 140 mmol/L (136-145)
[2020-01-10] MEDS: Multivitamin W/ Minerals 1 TAB PO SCH (08:18)
[2020-01-10] MEDS: Pantoprazole 40 MG VIAL IVP SCH ×2 (08:18→20:35)
[2020-01-10] MEDS: Acetaminophen 325 MG TAB PO PRN (08:18)
[2020-01-10] MEDS: Folic Acid 1 MG TAB PO SCH (08:18)
[2020-01-10] MEDS: Magnesium Oxide 400 MG TAB PO SCH (08:18)
[2020-01-10] MEDS: Thiamine 100 MG TAB PO SCH (08:18)
--- NOTE | 2020-01-10 10:51 | PRG ---
DATE OF SERVICE: 01/10/2020 REASON FOR CONSULTATION: Melena and hematemesis. SUBJECTIVE: The patient underwent upper endoscopy yesterday with the finding of LA grade A/B reflux esophagitis with mild oozing of blood at the GE junction that was intervened upon with APC. She also had 4 to 5 mm gastrojejunal ulceration with a red spot indicative of recent bleeding, which was ultimately intervened upon with bipolar cauterization. Since the upper endoscopy yesterday, she did have 1 episode of a runny black stool, but has not had any further episode since. Otherwise, she states that she is doing well with no events or problems overnight. Currently, she denies any nausea, vomiting, fevers, chills, hematemesis, melena, or hematochezia. OBJECTIVE: VITAL SIGNS: Temperature 98.6, pulse 83, blood pressure 128/78, respiratory rate 18, saturating 100% on room air. GENERAL: The patient is lying in bed, in no acute distress. Alert and oriented x4. CARDIOVASCULAR: Regular rate and rhythm. RESPIRATORY: Clear to auscultation bilaterally. ABDOMEN: Normoactive bowel sounds. Soft, nontender, nondistended. EXTREMITIES: No cyanosis, clubbing, or edema. LABORATORY DATA: CBC with a white blood cell count of 10, hemoglobin 7.3, hematocrit 22.8, platelets 408. INR 1.1. Chemistry with a sodium of 140, potassium 4.3, chloride 108, CO2 of 26, BUN 36, creatinine 2, glucose 135. IMAGING DATA: The patient underwent upper endoscopy on January 09, 2020, which showed LA grade A/B reflux mediated erosive esophagitis with mild oozing at the GE junction that was successfully intervened upon with argon plasma coagulation. She also had 4 to 5 mm gastrojejunal anastomosis ulceration that was fairly clean based, but did have a red spot in the middle of it concerning for recent bleeding as such it was subsequently intervened upon with bipolar cauterization with good hemostasis achieved as well. The last finding was a 2 cm hiatal hernia, but no evidence of Samuel ulcerations or erosions. ASSESSMENT AND PLAN: The patient is a 64-year-old female with past medical history of hypertension, diabetes, anxiety, depression, alcohol abuse, obesity status post gastric bypass, and cirrhosis of the liver (?), presenting with hematemesis and melena concerning for GI bleeding. GI bleeding/gastric ulcer. The patient initially presented with a single episode of hematemesis in addition to multiple small volume black solid bowel movements concerning in addition to a decrease in her hemoglobin and hematocrit, concerning for an upper GI bleeding. She subsequently underwent an upper endoscopy on January 09, 2020, which showed an anastomosis, a gastrojejunal anastomotic ulcer with high-risk stigmata bleeding in addition to oozing of blood at the gastroesophageal junction. These were both intervened upon with bipolar cauterization and argon plasma coagulation respectively. Since that time, she has only had one further episodes of melenic type stool with no further bleeding after that. However, she did have a drop in her hemoglobin and hematocrit, which could be indicative of equilibration of her total body blood volume, but we will need further monitoring for possible continued bleeding. Recommendations; 1. Would continue to trend her hemoglobin and hematocrit and transfuse as necessary to maintain hemoglobin and hematocrit of 7/21. 2. Continue to monitor clinically for signs of active GI bleeding. 3. Continue the patient on pantoprazole 40 mg IV b.i.d. 4. Would advance her diet as tolerated. Cirrhosis. The patient is presenting with a previous diagnosis of cirrhosis that was diagnosed in 2012 while being monitored at [facility] in [place]. However, on review of the patient's labs and upper endoscopy during this admission, the patient does not have any objective evidence of cirrhosis at this time including no evidence of cirrhotic morphology on imaging. No derangement in her hepatic synthetic function, thrombocytopenia, or esophageal varices/portal hypertensive gastropathy on upper endoscopy. Upon conferring with the patient, she states that while being followed by electromechanical equipment assembler in [place], [place], she was told that she was "cured." At this time, it raises suspicion for missed diagnosis of this condition initially, but unfortunately records not available for review at this time. Recommendations; 1. Would attempt to obtain records from [facility] regarding care for her cirrhosis. 2. The patient will ultimately need outpatient followup for possible cirrhosis once discharged from the hospital. We will continue to follow. Please call with any questions. Job ID: [id number]
--- NOTE | 2020-01-10 12:56 | PDOC.NEPPN ---
- Subjective Encounter Date: 01/10/20 Subjective: Seen in follow up for NILAM. Feeling better. No further emesis. Tolerating clear liquid diet. - Objective Vital Signs & Weight: Vital Signs (12 hours) Temp Pulse Resp BP BP Pulse Ox 01/10/20 08:00 100 01/10/20 07:52 98.6 F 83 18 128/78 100 01/10/20 04:00 98.2 F 86 20 103/61 103/61 99 Weight Weight 157 lb 13.616 oz I&O: 01/09/20 01/10/20 01/11/20 06:59 06:59 06:59 Intake Total 1449 2350 Balance 1449 2350 Result Diagrams: 01/10/20 05:52 01/10/20 05:52 Nephrology ROS - Medication Medications: Active Medications Generic Name Dose Route Start Last Admin Trade Name Freq PRN Reason Stop Dose Admin Acetaminophen 650 mg 01/08/20 19:15 01/10/20 08:18 Acetaminophen 325 Mg Tab PO 650 mg Q4H PRN Administration Headache/Fever/Mild Pain (1-3) Folic Acid 1 mg 01/09/20 09:00 01/10/20 08:18 Folic Acid 1 Mg Tab PO 1 mg DAILY RANDY Administration Ciprofloxacin/Dextrose 400 mg/ 200 mls @ 200 mls/hr 01/08/20 21:00 01/10/20 08:19 Device IVPB 200 mls Q12HR RANDY Administration Sodium Bicarbonate 150 meq/ 1,150 mls @ 100 mls/hr 01/09/20 11:00 01/10/20 03:50 Dextrose/Water IV 1,150 mls INF RANDY Administration Iron/Minerals/Multivitamins 1 tab 01/09/20 09:00 01/10/20 08:18 Multivitamin W/ Minerals 1 Tab PO 1 tab DAILY RANDY Administration Magnesium Oxide 400 mg 01/09/20 09:00 01/10/20 08:18 Magnesium Oxide 400 Mg Tab PO 400 mg DAILY RANDY Administration Pantoprazole Sodium 40 mg 01/09/20 21:00 01/10/20 08:18 Pantoprazole 40 Mg Vial IVP 40 mg Q12HR RANDY Administration Thiamine HCl 100 mg 01/09/20 09:00 01/10/20 08:18 Thiamine 100 Mg Tab PO 100 mg DAILY RANDY Administration - Exam General Appearance: awake alert Eye: anicteric sclera ENT: normocephalic atraumatic, dry oral mucosa Neck: supple, symmetric, no JVD Respiratory: CTAB Cardiovascular: RRR Gastrointestinal: soft, non-tender, non-distended, normal bowel sounds Extremities: no cyanosis, no edema Neurological: CN's grossly intact, no focal deficits PSYCH: A&O x 3 Nephrology Results - Labs Result Diagrams: 01/10/20 05:52 01/10/20 05:52 Lab results: WBC 10.0 thou/uL (4.8-10.8) 01/10/20 05:52 Hgb 7.3 g/dL (12.0-16.0) L 01/10/20 05:52 Hct 22.8 % (36.0-47.0) L 01/10/20 05:52 MCV 85.2 fL (78.0-98.0) 01/10/20 05:52 Plt Count 408 thou/uL (130-400) H 01/10/20 05:52 Neutrophils % 68.4 % (42.0-75.0) 01/09/20 06:02 Sodium 140 mmol/L (136-145) 01/10/20 05:52 Potassium 4.3 mmol/L (3.5-5.1) 01/10/20 05:52 Chloride 108 mmol/L (98-107) H 01/10/20 05:52 Carbon Dioxide 26 mmol/L (23-31) 01/10/20 05:52 BUN 36 mg/dL (9.8-20.1) H 01/10/20 05:52 Creatinine 2.00 mg/dL (0.6-1.1) H 01/10/20 05:52 Glucose 135 mg/dL (80-115) H 01/10/20 05:52 Calcium 7.7 mg/dL (7.8-10.44) L 01/10/20 05:52 Total Bilirubin 0.2 mg/dL (0.2-1.2) 01/08/20 13:53 AST 13 U/L (5-34) 01/08/20 13:53 ALT 9 U/L (8-55) 01/08/20 13:53 Alkaline Phosphatase 83 U/L (40-110) 01/08/20 13:53 Serum Total Protein 7.2 g/dL (6.0-8.3) 01/08/20 13:53 Albumin 2.9 g/dL (3.4-4.8) L 01/10/20 05:52 Urine Ketones 10 mg/dL (Negative) A 01/08/20 14:17 Urine Blood Negative (Negative) 01/08/20 14:17 Urine Nitrite Negative (Negative) 01/08/20 14:17 Ur Leukocyte Esterase Negative Nadriy/uL (Negative) 01/08/20 14:17 Sodium 140 mmol/L (136-145) 01/10/20 05:52 Potassium 4.3 mmol/L (3.5-5.1) 01/10/20 05:52 Chloride 108 mmol/L (98-107) H 01/10/20 05:52 Carbon Dioxide 26 mmol/L (23-31) 01/10/20 05:52 Anion Gap 10 mmol/L (10-20) 01/10/20 05:52 BUN 36 mg/dL (9.8-20.1) H 01/10/20 05:52 Creatinine 2.00 mg/dL (0.6-1.1) H 01/10/20 05:52 Glucose 135 mg/dL (80-115) H 01/10/20 05:52 Calcium 7.7 mg/dL (7.8-10.44) L 01/10/20 05:52 Phosphorus 2.5 mg/dL (2.3-4.7) 01/10/20 05:52 Magnesium 1.8 mg/dL (1.6-2.6) 01/10/20 05:52 Albumin 2.9 g/dL (3.4-4.8) L 01/10/20 05:52 Nephrology AP PN - Plan NILAM: Due to volume depletion from diuretic therapy, poor oral intake, GI losses and acute blood loss in a patient taking ACEI. Improving with IVF. Metabolic acidosis. Hyperkalemia Azotemia Acute GI bleeding Acute blood loss anemia HTN Plan Continue sodium bicarbonate infusion. Union oral intake. Continue to hold diuretic and ACEI Get orthostatic vitals. Recheck renal function in the am.
--- NOTE | 2020-01-10 13:44 | PDOC.HOSPP ---
- Subjective Encounter Date: 01/10/20 Encounter Time: 08:15 Subjective: no wu bleeding or hematemesis is tolerating liq diet is amb in room had some black stool last evening - Objective Vital Signs & Weight: Vital Signs (12 hours) Temp Pulse Resp BP BP BP BP 01/10/20 12:56 98.3 F 81 16 146/80 H 146/79 H 145/80 H 01/10/20 08:00 01/10/20 07:52 98.6 F 83 18 128/78 01/10/20 04:00 98.2 F 86 20 103/61 103/61 Pulse Ox 01/10/20 12:56 100 01/10/20 08:00 100 01/10/20 07:52 100 01/10/20 04:00 99 Weight Weight 157 lb 13.616 oz I&O: 01/09/20 01/10/20 01/11/20 06:59 06:59 06:59 Intake Total 1449 2350 Balance 1449 2350 Result Diagrams: 01/10/20 05:52 01/10/20 05:52 Hospitalist ROS - Medication Medications: Active Medications Generic Name Dose Route Start Last Admin Trade Name Freq PRN Reason Stop Dose Admin Acetaminophen 650 mg 01/08/20 19:15 01/10/20 08:18 Acetaminophen 325 Mg Tab PO 650 mg Q4H PRN Administration Headache/Fever/Mild Pain (1-3) Folic Acid 1 mg 01/09/20 09:00 01/10/20 08:18 Folic Acid 1 Mg Tab PO 1 mg DAILY RANDY Administration Ciprofloxacin/Dextrose 400 mg/ 200 mls @ 200 mls/hr 01/08/20 21:00 01/10/20 08:19 Device IVPB 200 mls Q12HR RANDY Administration Sodium Bicarbonate 150 meq/ 1,150 mls @ 100 mls/hr 01/09/20 11:00 01/10/20 03:50 Dextrose/Water IV 1,150 mls INF RANDY Administration Iron/Minerals/Multivitamins 1 tab 01/09/20 09:00 01/10/20 08:18 Multivitamin W/ Minerals 1 Tab PO 1 tab DAILY RANDY Administration Magnesium Oxide 400 mg 01/09/20 09:00 01/10/20 08:18 Magnesium Oxide 400 Mg Tab PO 400 mg DAILY RANDY Administration Pantoprazole Sodium 40 mg 01/09/20 21:00 01/10/20 08:18 Pantoprazole 40 Mg Vial IVP 40 mg Q12HR RANDY Administration Thiamine HCl 100 mg 01/09/20 09:00 01/10/20 08:18 Thiamine 100 Mg Tab PO 100 mg DAILY RANDY Administration - Exam General Appearance: awake alert Eye: PERRL, anicteric sclera ENT: no oropharyngeal lesions, moist mucosa Neck: supple, no JVD Heart: RRR, no murmur Respiratory: no wheezes, no rales Gastrointestinal: soft, non-tender, non-distended, normal bowel sounds Extremities: no cyanosis, no edema Neurological: cranial nerve grossly intact, no focal deficits Psychiatric: normal affect, A&O x 3 Hosp A/P (1) GI bleed Code(s): K92.2 - GASTROINTESTINAL HEMORRHAGE, UNSPECIFIED Status: Acute Qualifiers: GI bleed type/associated pathology: gastrojejunal ulcer Qualified Code(s): K28.4 - Chronic or unspecified gastrojejunal ulcer with hemorrhage (2) Acute blood loss anemia Code(s): D62 - ACUTE POSTHEMORRHAGIC ANEMIA Status: Acute (3) NILAM (acute kidney injury) Code(s): N17.9 - ACUTE KIDNEY FAILURE, UNSPECIFIED Status: Acute (4) Alcohol abuse Code(s): F10.10 - ALCOHOL ABUSE, UNCOMPLICATED Status: Chronic (5) Cirrhosis of liver Code(s): K74.60 - UNSPECIFIED CIRRHOSIS OF LIVER Status: Chronic Qualifiers: Hepatic cirrhosis type: alcoholic cirrhosis Ascites presence: without ascites Qualified Code(s): K70.30 - Alcoholic cirrhosis of liver without ascites (6) HTN (hypertension) Code(s): I10 - ESSENTIAL (PRIMARY) HYPERTENSION Status: Chronic Qualifiers: Hypertension type: essential hypertension Qualified Code(s): I10 - Essential (primary) hypertension (7) Metabolic acidosis Code(s): E87.2 - ACIDOSIS Status: Acute - Plan has had total of 2 units of prbc this admission, will check H/H in am. EGD results noted counselled reg complete cessation of alcohol continue protonix, oral iron, cipro. renal function is slowly trending down to baseline, ?ckd hemostable
--- NOTE | 2020-01-10 13:46 | CON ---
DATE OF CONSULTATION: 01/10/2020 SERVICE: Nephrology. REASON FOR CONSULTATION: Acute kidney injury. REQUESTING PHYSICIAN: Reina France MD CHIEF COMPLAINT: Melena and hematemesis. HISTORY OF PRESENT ILLNESS: A 64-year-old female with known history of hypertension, diabetes, liver cirrhosis, as well as obesity, status post gastric bypass, complicated by prior PUD, admitted with acute onset of nausea and vomiting associated with hematemesis and melena as well as lightheadedness. The patient reportedly developed abdominal pain about 2 weeks prior to presentation and was found to have features suggestive of acute sigmoid colitis, hence was started on metronidazole and ciprofloxacin with resolution of abdominal pain. However, the patient subsequently developed nausea and vomiting, which was later was associated with hematemesis and melena. The patient had multiple episodes associated with lightheadedness, hence presentation to the ER. She was found to have acute blood loss anemia requiring blood transfusion and resuscitation with IV fluid. The patient also was found to have elevated creatinine of 3.30 on presentation, which was a huge increase from 0.69 two weeks prior, hence Nephrology consult. The patient denied NSAID use, though admitted to low-dose aspirin use. She also was taking tizanidine and Neurontin for chronic pain. She denied fever, chest pain, headache, dysuria, or hematuria. PAST MEDICAL HISTORY: 1. Hypertension. 2. Obesity, status post gastric bypass in 2008. 3. Liver cirrhosis. 4. Depression. 5. Diabetes type 2. Resolved following gastric bypass. 6. Bleeding ulcer several years back. 7. Anxiety and depression. 8. Rheumatoid arthritis. PAST SURGICAL HISTORY: Gastric bypass in 2008. FAMILY HISTORY: Significant for diabetes and high blood pressure as well as heart disease in relatives. SOCIAL HISTORY: The patient currently uses alcohol sparingly. She, however, used to use alcohol heavily, and in fact, had alcoholic liver cirrhosis. She denied tobacco or illicit drug use. ALLERGIES: PENICILLIN. PRIOR TO HOSPITAL MEDICATIONS: As follows; 1. Citalopram 40 mg daily at bedtime. 2. Gabapentin 600 mg t.i.d. 3. Hydrochlorothiazide 25 mg p.o. daily. 4. Imitrex 100 mg p.o. b.i.d. 5. Amlodipine/benazepril 1 capsule p.o. daily at bedtime. 6. Meclizine 25 mg p.o. daily at bedtime. 7. Tizanidine 4 mg p.o. b.i.d. p.r.n. for pain. 8. Wellbutrin 150 mg p.o. daily. 9. Folic acid 1 mg p.o. daily. 10. Prazosin 1 mg daily at bedtime. 11. Thiamine 100 mg p.o. daily. CURRENT HOSPITAL MEDICATIONS: As follows; 1. Ciprofloxacin 400 mg q.12 hours. 2. Normal saline infusion. 3. Protonix IV push q.12 hours. 4. Folic acid 1 mg p.o. daily. 5. Magnesium oxide 400 mg p.o. daily. 6. Multivitamin 1 tablet p.o. daily. 7. Thiamine 100 mg p.o. daily. 8. Zofran p.r.n. REVIEW OF SYSTEMS: 12-point review of systems performed was negative other than pertinent positives and negatives included in the history of present illness. PHYSICAL EXAMINATION: VITAL SIGNS: Temperature 98.4, SpO2 of 98% on room air, pulse 93, blood pressure 141/80. I and O in the last 24 hours showed total intake of 1449, output was not recorded. GENERAL: Female patient, in no obvious distress. Afebrile, anicteric, and acyanotic. HEENT: Normocephalic, atraumatic. Oral mucosa is mildly dry. NECK: Supple with no JVD. CARDIOVASCULAR: Regular rhythm and rate with normal heart sounds 1 and 2. RESPIRATORY: Fair air entry bilaterally with no obvious crackles, rhonchi, or use of accessory muscles. GI: Full, soft, nontender, nondistended with normal bowel sounds. EXTREMITIES: Grossly normal looking, atraumatic with no obvious edema or erythema. FIELD SERVICES MANAGER: Conscious, alert, oriented x3 with appropriate mental status. Cranial nerves 2 through 12 are grossly intact. The patient moves all extremities. DIAGNOSTIC DATA: CBC showed WBC count of 9.5, hemoglobin of 6.7, MCV of 84.6, platelets of 430. Of note, hemoglobin on presentation was 7.5, which is a huge drop from 11.5 on December 24, 2019. Chemistry today showed sodium 139, potassium 5.1, chloride 113, CO2 of 17, BUN 75, creatinine 2.65, calcium 8.2, glucose 107. Of note, on presentation, sodium was 140, potassium 5.2, chloride 111, CO2 of 15, BUN 72, creatinine 3.3. On December 24, 2019, creatinine was 0.6. Urinalysis on presentation showed colorless clear urine with pH of 5.0, specific gravity of 1.013, negative protein, blood, nitrite, bilirubin, and leukocyte esterase. ASSESSMENT: 1. Acute kidney injury: This is most likely due to hemodynamic factors related to volume depletion and acute blood loss. Contribution from diuretic and DORIAN inhibitor cannot be ruled out. Creatinine is beginning to trend down with fluid resuscitation. 2. Metabolic acidosis: Most likely due to acute kidney injury. Gastrointestinal losses due to frequent loose stools cannot be ruled out. 3. Marked azotemia with BUN of 75: Worse from 72 on presentation. Despite trending down creatinine: GI bleeding and volume depletion, most likely . 4. Hypertension: Control is fair. 5. Acute blood loss anemia. 6. Acute gastrointestinal bleeding. PLAN: 1. We will substitute normal saline with sodium bicarbonate in view of marked hyperchloremia and high anion gap metabolic acidosis. 2. We will avoid nephrotoxic agents. 3. We will also check magnesium and phosphorus and replete as indicated. 4. We will recheck renal function test in the morning. 5. We will monitor blood pressure closely with a view to starting some antihypertensives if indicated. Further treatment to follow depending on hospital course. Many thanks for involving us in the care of this patient. We will follow along with you. Job ID: [id number]
[2020-01-10] MEDS: Ciprofloxacin 500 MG TAB PO SCH (20:34)
[2020-01-11] MEDS: Ciprofloxacin 500 MG TAB PO SCH (05:59)
[2020-01-11] MEDS: Acetaminophen 325 MG TAB PO PRN (06:03)
[2020-01-11 06:09] LABS: #Basophils 0.1 thou/uL (0.0-0.2); #Eosinphils 0.1 thou/uL (0.0-0.7); #Lymphocytes 1.4 thou/uL (1.20-3.40); #Monocytes 0.5 thou/uL (0.11-0.59); #Neutrophils 6.6 thou/uL (1.40-6.50); %Basophils 0.6 % (0.0-1.0); %Eosinophils 1.3 % (0.0-10.0); %Lymphocytes 16.5 % (21.0-51.0); %Monocytes 5.3 % (0.0-10.0); %Neutrophils 76.2 % (42.0-75.0); Mean Corpuscular Hemoglobin 27.2 pg (27.0-31.0); Mean Corpuscular Volume 84.9 fL (78.0-98.0); Mean Platelet Volume 7.9 fL (7.4-10.4); Platelet Count 438 thou/uL (130-400); RBC Distribution Width 17.1 % (11.5-14.5); Red Blood Cell (RBC) Count 2.96 mill/uL (4.20-5.40); White Blood Cell (WBC) Count 8.7 thou/uL (4.8-10.8)
[2020-01-11 06:32] LABS: Albumin 3.2 g/dL (3.4-4.8); Anion Gap 15 mmol/L (10-20); BUN (Urea Nitrogen) 20 mg/dL (9.8-20.1); BUN/Creatinine Ratio 10.93; Calc. Creatinine Clearance 34 mL/min (70-130); Calcium 8.1 mg/dL (7.8-10.44); Carbon Dioxide 25 mmol/L (23-31); Chloride 106 mmol/L (98-107); Estimated GFR-MDRD 33; Glucose 106 mg/dL (80-115); Phosphorus 2.9 mg/dL (2.3-4.7); Potassium 4.2 mmol/L (3.5-5.1); Sodium 142 mmol/L (136-145)
[2020-01-11] MEDS: Magnesium Oxide 400 MG TAB PO SCH (07:35)
[2020-01-11] MEDS: Pantoprazole 40 MG VIAL IVP SCH (07:35)
[2020-01-11] MEDS: Folic Acid 1 MG TAB PO SCH (07:36)
[2020-01-11] MEDS: Multivitamin W/ Minerals 1 TAB PO SCH (07:36)
[2020-01-11] MEDS: Thiamine 100 MG TAB PO SCH (07:36)
[2020-01-11 14:27] VITALS: BP 143/66; TEMP 98.2
--- NOTE | 2020-01-11 14:56 | PDOC.NEPPN ---
- Subjective Encounter Date: 01/11/20 Subjective: Seen in follow for NILAM. Nausea, vomiting and weakness has resolved. Tolerating oral intake. - Objective Vital Signs & Weight: Vital Signs (12 hours) Temp Pulse Resp BP Pulse Ox 01/11/20 14:26 98.2 F 87 16 143/66 H 100 01/11/20 11:30 98.0 F 80 18 151/84 H 100 01/11/20 08:00 97.9 F 74 18 134/77 100 Weight Weight 157 lb 13.616 oz I&O: 01/10/20 01/11/20 01/12/20 06:59 06:59 06:59 Intake Total 2350 Balance 2350 Result Diagrams: 01/11/20 05:32 01/11/20 05:32 - Exam General Appearance: awake alert Eye: anicteric sclera ENT: normocephalic atraumatic, moist mucosa Neck: supple, symmetric, no JVD Respiratory: CTAB Cardiovascular: RRR Gastrointestinal: soft, non-tender, non-distended, normal bowel sounds Extremities: no edema Neurological: CN's grossly intact PSYCH: normal affect, A&O x 3 Nephrology Results - Labs Result Diagrams: 01/11/20 05:32 01/11/20 05:32 Lab results: WBC 8.7 thou/uL (4.8-10.8) 01/11/20 05:32 Hgb 8.0 g/dL (12.0-16.0) L 01/11/20 05:32 Hct 25.1 % (36.0-47.0) L 01/11/20 05:32 MCV 84.9 fL (78.0-98.0) 01/11/20 05:32 Plt Count 438 thou/uL (130-400) H 01/11/20 05:32 Neutrophils % 76.2 % (42.0-75.0) H 01/11/20 05:32 Sodium 142 mmol/L (136-145) 01/11/20 05:32 Potassium 4.2 mmol/L (3.5-5.1) 01/11/20 05:32 Chloride 106 mmol/L (98-107) 01/11/20 05:32 Carbon Dioxide 25 mmol/L (23-31) 01/11/20 05:32 BUN 20 mg/dL (9.8-20.1) 01/11/20 05:32 Creatinine 1.83 mg/dL (0.6-1.1) H 01/11/20 05:32 Glucose 106 mg/dL (80-115) 01/11/20 05:32 Calcium 8.1 mg/dL (7.8-10.44) 01/11/20 05:32 Total Bilirubin 0.2 mg/dL (0.2-1.2) 01/08/20 13:53 AST 13 U/L (5-34) 01/08/20 13:53 ALT 9 U/L (8-55) 01/08/20 13:53 Alkaline Phosphatase 83 U/L (40-110) 01/08/20 13:53 Serum Total Protein 7.2 g/dL (6.0-8.3) 01/08/20 13:53 Albumin 3.2 g/dL (3.4-4.8) L 01/11/20 05:32 Urine Ketones 10 mg/dL (Negative) A 01/08/20 14:17 Urine Blood Negative (Negative) 01/08/20 14:17 Urine Nitrite Negative (Negative) 01/08/20 14:17 Ur Leukocyte Esterase Negative Andriy/uL (Negative) 01/08/20 14:17 Sodium 142 mmol/L (136-145) 01/11/20 05:32 Potassium 4.2 mmol/L (3.5-5.1) 01/11/20 05:32 Chloride 106 mmol/L (98-107) 01/11/20 05:32 Carbon Dioxide 25 mmol/L (23-31) 01/11/20 05:32 Anion Gap 15 mmol/L (10-20) 01/11/20 05:32 BUN 20 mg/dL (9.8-20.1) 01/11/20 05:32 Creatinine 1.83 mg/dL (0.6-1.1) H 01/11/20 05:32 Glucose 106 mg/dL (80-115) 01/11/20 05:32 Calcium 8.1 mg/dL (7.8-10.44) 01/11/20 05:32 Phosphorus 2.9 mg/dL (2.3-4.7) 01/11/20 05:32 Magnesium 1.8 mg/dL (1.6-2.6) 01/10/20 05:52 Albumin 3.2 g/dL (3.4-4.8) L 01/11/20 05:32 Nephrology AP PN - Plan NILAM: Due to volume depletion from diuretic therapy, poor oral intake, GI losses and acute blood loss in a patient taking ACEI. Improving but not back to baseline Metabolic acidosis. Hyperkalemia Azotemia Acute GI bleeding Acute blood loss anemia HTN Plan [place] oral intake BP Control with amlodipine Continue to hold diuretic and ACEI Can be discharged from nephrology point of view. Follow up with repeat RFT in 1 week.
--- NOTE | 2020-01-11 15:06 | DIS ---
DATE OF ADMISSION: 01/08/2020 DATE OF DISCHARGE: 01/11/2020 DISCHARGE DISPOSITION: To home. PRIMARY DISCHARGE DIAGNOSES: GI bleed with anastomotic ulcer at the gastrojejunal site from prior gastric bypass, acute blood loss anemia, acute kidney injury, alcohol abuse, cirrhosis of liver. SECONDARY DISCHARGE DIAGNOSES: Metabolic acidosis secondary to acute kidney injury, resolving; hypertension. PROCEDURES DONE DURING HOSPITALIZATION: CT brain on admission showed no acute intracranial process. Upper endoscopy done on 01/09/[address] Kevin Garcia showed LA grade A/B reflux-mediated erosive esophagitis with mild oozing of blood at the gastroesophageal junction, status post APC/argon plasma coagulation with good hemostasis. 4 to 5 mm gastrojejunal anastomotic ulceration with high-risk stigmata of recent bleeding, status post bipolar cauterization with good hemostasis. 2 cm hiatal hernia was seen. No evidence of esophageal or gastric varices was seen. H and H had dropped down to 6.7 and 21 on the . Discharge H and H of 8 and 25, platelet count 438 on the day of discharge, MCV 84. PT/INR 14 and 1.1, PTT 24. BUN and creatinine were 72 and 3.3 on admission. Discharge BUN and creatinine of 20 and 1.8. Albumin 3.2. COVID-19 PCR was not detected on 01/08/2020. DISCHARGE MEDICATIONS: 1. Protonix 40 mg p.o. twice daily. 2. Ferrous sulfate 325 mg p.o. twice daily. 3. Folic acid 1 mg p.o. daily. 4. Thiamine 100 mg p.o. daily. 5. Sumatriptan p.r.n. 6. Bupropion extended release 150 mg p.o. q.a.m. 7. Meclizine 25 mg p.o. q.p.m. 8. Lotrel 5/40 mg one capsule at bedtime. 9. Gabapentin 600 mg p.o. 3 times daily. 10. Citalopram 40 mg p.o. q.p.m. ALLERGIES: ALLERGIC TO PENICILLIN. DISCHARGE PLAN: The patient to follow up with Dr. Kevin Garcia in 3 to 4 weeks. She needs to follow up with her primary care physician at [facility] in 1 week to follow up with Dr. Garcia on 01/18/2020 at 11:30 a.m. BRIEF COURSE DURING HOSPITALIZATION: The patient initially came to ER with complaints of black stools and dizziness with weakness. She was suspected to have GI bleed with history of alcohol abuse. The patient also had elevated BUN-creatinine ratio suggestive of GI bleed. She has had consultation with Dr. Kevin Garcia for Gastroenterology. The patient initially was placed on octreotide and Protonix drips. Upper endoscopy findings have been revealed above. There was no varices noted. Her octreotide was discontinued and the patient continued on Protonix twice daily. She has had serial H and H done. The patient also received 2 units of packed cell transfusion during her stay here. Her H and H have remained stable. She is tolerating oral solid diet. She is having black stool mixed with brown regular stools at the time of discharge with no active blood as such in the stool. Her acute kidney injury has almost resolved. Likely, the patient has underlying chronic kidney disease and will need to follow up with Dr. Garcia in the outpatient setting. She was counseled against drinking any amount of alcohol. She needs follow up with Dr. Kevin Garcia in 3 to 4 weeks. Oral iron and Protonix prescriptions were given for her. She is hemodynamically stable, ambulating and eating well prior to discharge. Please note, I have seen and examined the patient on the day of discharge. Job ID: [id number]
--- NOTE | 2020-01-11 16:00 | PRG ---
DATE OF SERVICE: 01/11/2020 SUBJECTIVE: Ms. Hooper is feeling well. Ms. Hooper has had no further bleeding. She is still having some dark stools. She is eating well. PHYSICAL EXAMINATION: VITAL SIGNS: Blood pressure is 143/66, temperature 98.2, pulse is 87. LUNGS: Clear. HEART: Regular without clicks or murmurs. ABDOMEN: Soft, nontender. LABORATORY DATA: White count is 8.7; hemoglobin is 8, up from 6.7 on 01/08, 7.5 on 01/07. potassium 4.2, BUN and creatinine are 20 and 1.83, improved. ASSESSMENT: Gastrointestinal bleed secondary to anastomotic ulcer, status post cautery, 2 cm hiatal hernia reflux esophagitis. RECOMMENDATION: The patient can go home with her PPI therapy. Carafate would not be unreasonable to add in. She has persistent problem. She should avoid all alcohol, NSAIDs, and tobacco use. She can follow up Dr. Garcia in our office in 2 weeks. Job ID: [id number]
== END 2020-01-11 14:41 | disposition home or self-care (01) | DRG 378 ==
LOC: ERS 12:11 → T4-A 16:12
PROVIDERS: ADMIT Emergency Medicine; ATTEND Internal Medicine
PROC: 30233N1 Transfusion of Nonautologous Red Blood Cells into Peripheral Vein, Percutaneous Approach (ICD-10-PCS; 2020-01-08)
PROC: 3E02340 Introduction of Influenza Vaccine into Muscle, Percutaneous Approach (ICD-10-PCS; 2020-01-08)
PROC: 0W3P8ZZ Control Bleeding in Gastrointestinal Tract, Via Natural or Artificial Opening Endoscopic (ICD-10-PCS; principal; 2020-01-09)
DX: K28.4 Chronic or unspecified gastrojejunal ulcer with hemorrhage (principal); D62 Acute posthemorrhagic anemia; N17.9 Acute kidney failure, unspecified; E87.2 Acidosis; Z20.828 Contact with and (suspected) exposure to other viral communicable diseases; K21.01 Gastro-esophageal reflux disease with esophagitis, with bleeding; N18.9 Chronic kidney disease, unspecified; K70.30 Alcoholic cirrhosis of liver without ascites; F41.9 Anxiety disorder, unspecified; F32.9 Major depressive disorder, single episode, unspecified; F10.20 Alcohol dependence, uncomplicated; K44.9 Diaphragmatic hernia without obstruction or gangrene; E86.9 Volume depletion, unspecified; I12.9 Hypertensive chronic kidney disease with stage 1 through stage 4 chronic kidney disease, or unspecified chronic kidney disease; M06.9 Rheumatoid arthritis, unspecified; Z23 Encounter for immunization; Z88.0 Allergy status to penicillin; Z79.899 Other long term (current) drug therapy
CPT/HCPCS: 36415; 36430; 51701; 70450; 80048; 80053; 80069; 81003; 82274; 83735; 85025; 85027; 85610; 85730; 86850; 86900; 86901; 87635; 90471; 90662; 96365; 96366; 96376; C9113; G0008; J0744; J2704; J3411; J3475; J3490; J7070; P9016; U0003

== ENCOUNTER 2020-04-29 09:11 | Emergency (ER) | payer MEDICARE ==
[2020-04-29] MEDS ORDERED: Ondansetron PF 4 MG/2 ML Vial ONE (09:25)
[2020-04-29] MEDS ORDERED: Pantoprazole 40 MG VIAL ONE (10:02)
[2020-04-29 10:14] LABS: Hemoglobin 14.1 g/dL (12.0-16.0); Mean Corpuscular Hemoglobin 25.3 pg (27.0-31.0); Red Blood Cell (RBC) Count 5.58 mill/uL (4.20-5.40)
[2020-04-29 10:20] LABS: #Lymphocytes 1.2 thou/uL (1.20-3.40); #Monocytes 0.2 thou/uL (0.11-0.59); #Neutrophils 4.7 thou/uL (1.40-6.50); %Basophils 0.6 % (0.0-1.0); %Eosinophils 0.1 % (0.0-10.0); %Lymphocytes 19.6 % (21.0-51.0); %Monocytes 2.9 % (0.0-10.0); %Neutrophils 76.9 % (42.0-75.0); Anisocytosis SLIGHT = 6-15 cells (100X) (0-5/hpf); Hypochromia SLIGHT = 6-15 cells (100X) (0-5/hpf); Lymphocytes 24 % (21-51); MDiff Complete? YES; Mean Corpuscular HGB CONC 33.3 g/dL (32.0-36.0); Mean Platelet Volume 10.9 fL (7.4-10.4); Neutrophil 76 % (42-75); Platelet Count 198 thou/uL (130-400); Platelet Morphology Comment Appears Adequate; RBC Distribution Width 15.7 % (11.5-14.5); Target Cells SLIGHT = 2-5 cells (100X) (0-1/hpf); White Blood Cell (WBC) Count 6.1 thou/uL (4.8-10.8)
[2020-04-29 10:40] LABS: Bilirubin Negative (Negative); Blood, Urine Trace (Negative); Clarity Clear (Clear); Glucose, Urine (Dipstick) Normal (Negative); Ketone, Urine 10 mg/dL (Negative); Leukocyte 500 Leu/uL (Negative); Nitrite Negative (Negative); Protein, Urine (Dipstick) 10 mg/dL (Neg-Trace); RBC/HPF 0-3 HPF (0-3); Specific Gravity, Urine 1.022 (1.002-1.036); Squamous Epithelial 0-3 HPF (0-3); Urobilinogen Normal mg/dL (Less than 2)
[2020-04-29 10:53] LABS: Bacteria/HPF 1+ HPF (None Seen)
[2020-04-29 11:02] LABS: ALT (SGPT) 69 U/L (8-55); AST (SGOT) 121 U/L (5-34); Albumin 3.5 g/dL (3.4-4.8); Alkaline Phosphatase 78 U/L (40-110); Anion Gap 19 mmol/L (10-20); BUN (Urea Nitrogen) 13 mg/dL (9.8-20.1); Bilirubin, Total 0.7 mg/dL (0.2-1.2); Calc. Creatinine Clearance 0 mL/min (70-130); Calcium 7.7 mg/dL (7.8-10.44); Carbon Dioxide 18 mmol/L (23-31); Chloride 104 mmol/L (98-107); Globulin 2.8 g/dL (2.4-3.5); Glucose 161 mg/dL (80-115); Lipase 122 U/L (8-78); Potassium 4.1 mmol/L (3.5-5.1); Protein, Total 6.3 g/dL (5.8-8.1); Sodium 137 mmol/L (136-145)
[2020-04-29] MEDS ORDERED: Iopamidol-370 76% 500 ML 1 ML ONE (12:02)
[2020-04-29] MEDS ORDERED: Iopamidol 370 76% 50 ML VIAL FS ONE (12:02)
[2020-04-29] MEDS ORDERED: Morphine 10 MG/ML VIAL ONE (12:28)
== END 2020-04-29 15:25 | disposition home or self-care (01) ==
LOC: ERS 09:11
DX: N39.0 Urinary tract infection, site not specified (principal); R94.5 Abnormal results of liver function studies; I10 Essential (primary) hypertension; Z79.899 Other long term (current) drug therapy
CPT/HCPCS: 36415; 74177; 80053; 81003; 81015; 83690; 84484; 85025; 93005; 96361; 96372; 96374; 96375; C9113; J0500; J2270; J2405; Q9967

== ENCOUNTER 2020-05-06 21:39 | Inpatient (IN) | payer MEDICARE ==
[2020-05-06 23:06] LABS: Bilirubin Negative (Negative); Blood, Urine Negative (Negative); Clarity Turbid (Clear); Glucose, Urine (Dipstick) Normal (Negative); Ketone, Urine Negative (Negative); Leukocyte Negative Leu/uL (Negative); Nitrite Negative (Negative); Protein, Urine (Dipstick) Negative (Neg-Trace); Specific Gravity, Urine 1.015 (1.002-1.036); Urobilinogen Normal mg/dL (Less than 2); pH, Urine 5.5 (5.0-9.0)
[2020-05-07 00:08] LABS: Hemoglobin 13.8 g/dL (12.0-16.0); Mean Corpuscular HGB CONC 33.7 g/dL (32.0-36.0); Mean Corpuscular Hemoglobin 26.1 pg (27.0-31.0); Mean Corpuscular Volume 77.5 fL (78.0-98.0); Platelet Count 212 thou/uL (130-400)
[2020-05-07 00:09] LABS: Albumin 3.4 g/dL (3.4-4.8)
[2020-05-07 00:10] LABS: Chloride 100 mmol/L (98-107); Sodium 132 mmol/L (136-145)
[2020-05-07 00:11] LABS: Calcium 7.7 mg/dL (7.8-10.44); Glucose 159 mg/dL (80-115)
[2020-05-07 00:12] LABS: Globulin 3.2 g/dL (2.4-3.5); Protein, Total 6.6 g/dL (5.8-8.1)
[2020-05-07 00:13] LABS: Anion Gap 21 mmol/L (10-20); Bilirubin, Total 1.4 mg/dL (0.2-1.2); Carbon Dioxide 15 mmol/L (23-31)
[2020-05-07 00:14] LABS: Alkaline Phosphatase 120 U/L (40-110)
[2020-05-07 00:15] LABS: Calc. Creatinine Clearance 0 mL/min (70-130)
[2020-05-07 00:16] LABS: BUN (Urea Nitrogen) 15 mg/dL (9.8-20.1)
[2020-05-07 00:17] LABS: ALT (SGPT) 134 U/L (8-55); AST (SGOT) 982 U/L (5-34)
[2020-05-07 00:18] LABS: Lipase 231 U/L (8-78)
[2020-05-07 00:48] LABS: Band 15 % (5-11); Lymphocytes 8 % (21-51); MDiff Complete? YES; Monocytes 6 % (0-10); Neutrophil 70 % (42-75); Nucleated RBC 2 % (0)
[2020-05-07] MEDS ORDERED: Morphine 4 MG/ML VIAL ONE (01:44)
[2020-05-07] MEDS ORDERED: Ondansetron PF 4 MG/2 ML Vial ONE (01:44)
[2020-05-07] MEDS ORDERED: Sodium Chloride 0.9% 1,000 ML IV SCH ×2 (03:30→04:00)
[2020-05-07 04:11] VITALS: BMI 27.0
[2020-05-07] MEDS ORDERED: GoLYTELY 4,000 ml Bottle PO SCH (07:15)
[2020-05-07] MEDS ORDERED: Mag-Al 1200 mg/1200 mg/30 ML UDCUP PO SCH (08:00)
[2020-05-07 08:05] LABS: Lactic Acid 2.4 mmol/L (0.5-2.2)
[2020-05-07 08:10] LABS: ALT (SGPT) 122 U/L (8-55); AST (SGOT) 632 U/L (5-34); Albumin 3.3 g/dL (3.4-4.8); Alkaline Phosphatase 126 U/L (40-110); Anion Gap 17 mmol/L (10-20); BUN (Urea Nitrogen) 11 mg/dL (9.8-20.1); Bilirubin, Total 1.3 mg/dL (0.2-1.2); Calc. Creatinine Clearance 77 mL/min (70-130); Calcium 7.4 mg/dL (7.8-10.44); Carbon Dioxide 16 mmol/L (23-31); Chloride 106 mmol/L (98-107); Globulin 2.7 g/dL (2.4-3.5); Glucose 92 mg/dL (80-115); Potassium 3.3 mmol/L (3.5-5.1); Sodium 136 mmol/L (136-145)
[2020-05-07] MEDS: Mag-Al 1200 mg/1200 mg/30 ML UDCUP PO SCH ×4 (08:23→20:05)
[2020-05-07] MEDS: Pantoprazole 40 MG VIAL IVP SCH ×2 (08:24→20:06)
[2020-05-07] MEDS ORDERED: Pantoprazole 40 MG VIAL IVP SCH (09:00)
[2020-05-07 09:20] LABS: #Lymphocytes 1.3 thou/uL (1.20-3.40); #Monocytes 0.3 thou/uL (0.11-0.59); #Neutrophils 4.6 thou/uL (1.40-6.50); %Basophils 0.4 % (0.0-1.0); %Eosinophils 0.6 % (0.0-10.0); %Lymphocytes 20.2 % (21.0-51.0); %Monocytes 5.3 % (0.0-10.0); %Neutrophils 73.5 % (42.0-75.0); Hemoglobin 11.4 g/dL (12.0-16.0); Mean Corpuscular HGB CONC 33.1 g/dL (32.0-36.0); Mean Corpuscular Hemoglobin 25.6 pg (27.0-31.0); Mean Corpuscular Volume 77.5 fL (78.0-98.0); Mean Platelet Volume 9.6 fL (7.4-10.4); Platelet Count 187 thou/uL (130-400); RBC Distribution Width 16.7 % (11.5-14.5); Red Blood Cell (RBC) Count 4.45 mill/uL (4.20-5.40); White Blood Cell (WBC) Count 6.3 thou/uL (4.8-10.8)
[2020-05-07 09:51] LABS: HBCM Index 0.14 S/CO (0-0.79); HBSAg Index 0.14 S/CO (0-0.99); Hep A IgM AB Non-Reactive (NonReactive); Hep A IgM S/CO 0.13 S/CO (0-0.79); Hep B Surf Ag Non-Reactive S/CO (NonReactive); Hepatitis B Core IgM Abs Non-Reactive (NonReactive)
[2020-05-07 09:59] LABS: SARS-CoV-2 PCR by NAA Not Detected (NotDetected)
[2020-05-07 10:38] LABS: Hep C IgG Ab Reflex HepC Qnt (NonReactive); Hep C Index 14.38 S/CO (0-0.79)
[2020-05-07] MEDS ORDERED: Ondansetron PF 4 MG/2 ML Vial IVP PRN (13:21)
[2020-05-07] MEDS ORDERED: Morphine 2 MG/ML VIAL SLOW IVP PRN (13:21)
[2020-05-07] MEDS ORDERED: Potassium Chloride 20 MEQ TAB PO SCH (14:00)
[2020-05-07] MEDS: Gabapentin 300 MG CAP PO SCH ×2 (14:44→20:06)
[2020-05-07] MEDS: Dextrose 5 % And 0.9 % NaCl 1,000 ML IV SCH (14:45)
[2020-05-07] MEDS: Citalopram 20 MG TAB PO SCH (20:06)
[2020-05-07] MEDS ORDERED: hydrALAZINE 20 MG/ML VIAL SLOW IVP PRN (20:46)
[2020-05-08] MEDS: Dextrose 5 % And 0.9 % NaCl 1,000 ML IV SCH (03:49)
[2020-05-08] MEDS: Amlodipine 10 MG TAB PO SCH (07:46)
[2020-05-08] MEDS: Pantoprazole 40 MG VIAL IVP SCH ×2 (07:47→20:41)
[2020-05-08] MEDS: Mag-Al 1200 mg/1200 mg/30 ML UDCUP PO SCH ×4 (07:59→20:40)
[2020-05-08] MEDS ORDERED: Fentanyl 100 MCG/2 ML VIAL ONE (08:46)
[2020-05-08] MEDS ORDERED: PROPOFOL 200 MG/20 ML VIAL ONE (08:56)
[2020-05-08] MEDS: Gabapentin 300 MG CAP PO SCH ×3 (10:20→20:41)
[2020-05-08 11:20] LABS: Lactic Acid 2.6 mmol/L (0.5-2.2)
[2020-05-08 11:26] LABS: Hemoglobin 11.1 g/dL (12.0-16.0); Mean Corpuscular HGB CONC 31.8 g/dL (32.0-36.0); Mean Corpuscular Hemoglobin 24.9 pg (27.0-31.0); Mean Corpuscular Volume 78.2 fL (78.0-98.0); Mean Platelet Volume 9.8 fL (7.4-10.4); Platelet Count 177 thou/uL (130-400); RBC Distribution Width 16.9 % (11.5-14.5); Red Blood Cell (RBC) Count 4.45 mill/uL (4.20-5.40); White Blood Cell (WBC) Count 5.1 thou/uL (4.8-10.8)
[2020-05-08 11:32] LABS: ALT (SGPT) 100 U/L (8-55); AST (SGOT) 202 U/L (5-34); Albumin 3.5 g/dL (3.4-4.8); Alkaline Phosphatase 136 U/L (40-110); Anion Gap 14 mmol/L (10-20); BUN (Urea Nitrogen) Less than 4 mg/dL (9.8-20.1); Calc. Creatinine Clearance 95 mL/min (70-130); Calcium 7.6 mg/dL (7.8-10.44); Carbon Dioxide 23 mmol/L (23-31); Chloride 104 mmol/L (98-107); Glucose 161 mg/dL (80-115); Potassium 3.4 mmol/L (3.5-5.1); Protein, Total 6.5 g/dL (5.8-8.1); Sodium 138 mmol/L (136-145)
[2020-05-08] MEDS: Dicyclomine 10 MG CAP PO SCH ×3 (14:52→20:41)
[2020-05-08] MEDS ORDERED: Potassium Chloride 20 MEQ TAB PO SCH (16:00)
[2020-05-08] MEDS: Citalopram 20 MG TAB PO SCH (20:40)
[2020-05-09 06:02] LABS: #Eosinphils 0.1 thou/uL (0.0-0.7); #Monocytes 0.3 thou/uL (0.11-0.59); #Neutrophils 4.2 thou/uL (1.40-6.50); %Basophils 0.3 % (0.0-1.0); %Lymphocytes 30.1 % (21.0-51.0); %Monocytes 4.6 % (0.0-10.0); Mean Corpuscular HGB CONC 32.1 g/dL (32.0-36.0); Mean Corpuscular Hemoglobin 25.6 pg (27.0-31.0); Mean Corpuscular Volume 79.6 fL (78.0-98.0); Mean Platelet Volume 9.7 fL (7.4-10.4); Platelet Count 148 thou/uL (130-400); White Blood Cell (WBC) Count 6.5 thou/uL (4.8-10.8)
[2020-05-09 06:22] LABS: ALT (SGPT) 67 U/L (8-55); AST (SGOT) 93 U/L (5-34); Albumin 3.1 g/dL (3.4-4.8); Alkaline Phosphatase 106 U/L (40-110); Anion Gap 10 mmol/L (10-20); BUN (Urea Nitrogen) 5 mg/dL (9.8-20.1); Bilirubin, Total 0.6 mg/dL (0.2-1.2); Calc. Creatinine Clearance 99 mL/min (70-130); Calcium 7.9 mg/dL (7.8-10.44); Carbon Dioxide 26 mmol/L (23-31); Chloride 108 mmol/L (98-107); Globulin 2.6 g/dL (2.4-3.5); Glucose 91 mg/dL (80-115); Potassium 4.6 mmol/L (3.5-5.1); Protein, Total 5.7 g/dL (5.8-8.1); Sodium 139 mmol/L (136-145)
[2020-05-09] MEDS: Mag-Al 1200 mg/1200 mg/30 ML UDCUP PO SCH ×2 (09:01→12:06)
[2020-05-09] MEDS: Amlodipine 10 MG TAB PO SCH (09:01)
[2020-05-09] MEDS: Gabapentin 300 MG CAP PO SCH (09:01)
[2020-05-09] MEDS: Dicyclomine 10 MG CAP PO SCH ×2 (09:01→12:06)
[2020-05-09] MEDS: Pantoprazole 40 MG VIAL IVP SCH (09:01)
[2020-05-09 11:51] VITALS: BP 146/80; TEMP 98.1
[2020-05-10 11:14] LABS: Hep C PCR-Quant HCV Not Detected IU/mL (.)
== END 2020-05-09 14:26 | disposition home or self-care (01) | DRG 897 ==
LOC: ERS 21:39 → SURG A 05-07 01:08 → OBSVTOIN 05-07 18:38
PROVIDERS: ADMIT Student in an Organized Health Care Education/Training Program; ATTEND Family Medicine
PROC: 0DJ08ZZ Inspection of Upper Intestinal Tract, Via Natural or Artificial Opening Endoscopic (ICD-10-PCS; principal; 2020-05-08)
PROC: 0DJD8ZZ Inspection of Lower Intestinal Tract, Via Natural or Artificial Opening Endoscopic (ICD-10-PCS; 2020-05-08)
DX: F10.10 Alcohol abuse, uncomplicated (principal); N17.9 Acute kidney failure, unspecified; D62 Acute posthemorrhagic anemia; E87.2 Acidosis; E87.1 Hypo-osmolality and hyponatremia; K29.70 Gastritis, unspecified, without bleeding; K57.30 Diverticulosis of large intestine without perforation or abscess without bleeding; Z20.822 Contact with and (suspected) exposure to COVID-19; I10 Essential (primary) hypertension; E66.9 Obesity, unspecified; D50.9 Iron deficiency anemia, unspecified; K70.30 Alcoholic cirrhosis of liver without ascites; R79.89 Other specified abnormal findings of blood chemistry; K70.10 Alcoholic hepatitis without ascites; E87.6 Hypokalemia; G62.9 Polyneuropathy, unspecified; F32.9 Major depressive disorder, single episode, unspecified; Z98.84 Bariatric surgery status; Z88.0 Allergy status to penicillin; Z79.899 Other long term (current) drug therapy
CPT/HCPCS: 36415; 51701; 74177; 80053; 80074; 81003; 82274; 83605; 83690; 85025; 85027; 87045; 87046; 87086; 87324; 87427; 87449; 87522; 87635; 96374; 96375; C9113; G0378; J0360; J2270; J2405; J2704; J3010; U0003; U0005

== ENCOUNTER 2020-06-16 03:03 | Inpatient (IN) | payer MEDICARE ==
[2020-06-16] MEDS ORDERED: Naloxone HCl 2 mg/2 ml Syringe ONE (03:06)
[2020-06-16 03:29] LABS: Actual Bicarbonate (HCO3a) 15.4 mEq/L (22-28); Analyzer IN Cardio ER; Base Excess (BEa) -10.9 mEq/L (-2.0 to +3.0); CO2 Tension 35.8 mmHg (35.0-45.0); Calcium, Ionized (arterial) 1.02 mmol/L (1.12-1.30); Carboxyhemoglobin (COHb) 0.3 gm% (0.0-3.0); Hemoglobin (Hb) 7.6 g/dL (12.0-16.0); O2 Tension (PaO2), arterial 103.8 mmHg (> 80.0)
[2020-06-16 03:29] LABS: Hemoglobin 8.2 g/dL (12.0-16.0); Mean Corpuscular HGB CONC 32.1 g/dL (32.0-36.0); Mean Corpuscular Hemoglobin 26.8 pg (27.0-31.0); Mean Corpuscular Volume 83.5 fL (78.0-98.0); Mean Platelet Volume 8.6 fL (7.4-10.4); Platelet Count 176 thou/uL (130-400); RBC Distribution Width 19.1 % (11.5-14.5); Red Blood Cell (RBC) Count 3.04 mill/uL (4.20-5.40); White Blood Cell (WBC) Count 6.2 thou/uL (4.8-10.8)
[2020-06-16 03:32] LABS: Puncture Site LBA; pH, Arterial 7.25 (7.35-7.45)
[2020-06-16 03:37] LABS: ALT (SGPT) 28 U/L (8-55); AST (SGOT) 47 U/L (5-34); Acetaminophen Less than 6.0 mcg/mL (10.0-30.0); Albumin 2.9 g/dL (3.4-4.8); Alcohol 123 mg/dL (Less than 10); Alkaline Phosphatase 51 U/L (40-110); Anion Gap 14 mmol/L (10-20); BUN (Urea Nitrogen) 10 mg/dL (9.8-20.1); Bilirubin, Total 0.2 mg/dL (0.2-1.2); Calc. Creatinine Clearance 0 mL/min (70-130); Calcium 7.3 mg/dL (7.8-10.44); Carbon Dioxide 17 mmol/L (23-31); Chloride 111 mmol/L (98-107); Glucose 221 mg/dL (80-115); Potassium 3.7 mmol/L (3.5-5.1); Protein, Total 4.9 g/dL (5.8-8.1); Salicylate Less than 8.0 mg/dL (15.0-30.0); Sodium 138 mmol/L (136-145)
[2020-06-16] MEDS ORDERED: Norepinephrine 8 MG/0.9% NS 250 ML ONE (03:37)
[2020-06-16 03:41] LABS: Bilirubin Negative (Negative); Blood, Urine Negative (Negative); Clarity Clear (Clear); Glucose, Urine (Dipstick) Normal (Negative); Ketone, Urine Negative (Negative); Leukocyte Negative Leu/uL (Negative); Nitrite Negative (Negative); Protein, Urine (Dipstick) Negative (Neg-Trace); Specific Gravity, Urine 1.018 (1.002-1.036); Urobilinogen Normal mg/dL (Less than 2)
[2020-06-16 03:58] LABS: Amphetamine Not Detected (NotDetected); Barbiturates Screen Not Detected (NotDetected); Benzodiazepine Screen Not Detected (NotDetected); Cocaine Metabolite Screen Not Detected (NotDetected); Medtox Control Line Valid? VALID (VALID); Medtox Reader # READER 4; Methadone Not Detected (NotDetected); Methamphetamine Not Detected (NotDetected); Opiate Screen Not Detected (NotDetected); Oxycodone Screen Not Detected (NotDetected); Phencyclidine (PCP) Not Detected (NotDetected); THC/Cannabinoid Screen Not Detected (NotDetected); Tricyclic Screen Detected (NotDetected)
[2020-06-16 04:15] LABS: Anisocytosis SLIGHT = 6-15 cells (100X) (0-5/hpf); Band 1 % (5-11); Lymphocytes 59 % (21-51); MDiff Complete? YES; Monocytes 3 % (0-10); Neutrophil 34 % (42-75); Reactive Lymphocytes 3 % (0-10)
[2020-06-16] MEDS ORDERED: Sodium Bicarbonate 2.5 MEQ/5 ML VIAL ONE (04:15)
[2020-06-16] MEDS ORDERED: Cefepime 1 GM VIAL ONE (04:15)
[2020-06-16] MEDS ORDERED: Sodium Bicarb 50 MEQ/50 ML Abboject 8.4% SYRINGE ONE ×3 (04:16→04:19)
[2020-06-16] MEDS ORDERED: Cefepime 2 GM VIAL ONE (04:18)
[2020-06-16] MEDS ORDERED: Vancomycin 1 GM/200 ML BAG ONE (05:33)
[2020-06-16 05:58] LABS: SARS-CoV-2 NAA Rapid Test Not Detected (NotDetected)
[2020-06-16] MEDS ORDERED: Ondansetron PF 4 MG/2 ML Vial IVP PRN (06:00)
[2020-06-16] MEDS ORDERED: Dextrose 5% in Water 1,000 ML IV PRN (06:12)
[2020-06-16] MEDS ORDERED: Dextrose 50% Abboject 50 ML SYRINGE SLOW IVP PRN (06:12)
[2020-06-16] MEDS ORDERED: Magnesium Sulfate 2 GM in Sodium Chloride 0.9% 100 ML IVPB SCH (06:15)
[2020-06-16] MEDS ORDERED: Magnesium 2 GM/50 ML 2 GM in Premix Bag 1 BAG IVPB SCH (06:15)
[2020-06-16 07:07] LABS: Lactic Acid 3.7 mmol/L (0.5-2.2)
[2020-06-16 07:40] LABS: Hemoglobin A1c 5.1 % (4.0-6.0)
[2020-06-16] MEDS: Sodium Chloride 0.9% 1,000 ML IV SCH ×2 (07:58→15:50)
[2020-06-16 08:11] VITALS: BMI 27.9
[2020-06-16] MEDS ORDERED: Lorazepam 2 MG/ML VIAL SLOW IVP PRN (08:24)
[2020-06-16] MEDS: Multivit, Therapeutic 1 TAB PO SCH (09:12)
[2020-06-16] MEDS: Folic Acid 1 MG TAB PO SCH (09:12)
[2020-06-16] MEDS ORDERED: Vancomycin 1.5 GRAM/300 ML BAG 1.5 GM in Premix Bag 1 BAG IVPB SCH (11:00)
[2020-06-16] MEDS: Cefepime 1 GM in Sodium Chloride 0.9% 100 ML IVPB SCH (15:50)
[2020-06-16] MEDS ORDERED: Sodium Chloride 0.9% 1,000 ML IV SCH (18:02)
[2020-06-16] MEDS: Gabapentin 300 MG CAP PO SCH (20:40)
[2020-06-16] MEDS ORDERED: Amlodipine 10 MG TAB PO SCH (21:00)
[2020-06-16] MEDS ORDERED: Citalopram 20 MG TAB PO SCH (21:00)
[2020-06-16] MEDS ORDERED: Loratadine 10 MG TAB PO SCH (22:15)
[2020-06-16] MEDS: Acetaminophen 325 MG TAB PO PRN (22:50)
[2020-06-16] MEDS ORDERED: Morphine 2 MG/ML VIAL SLOW IVP SCH (23:59)
[2020-06-17 04:58] VITALS: TEMP 97.9
[2020-06-17] MEDS ORDERED: Cefepime 1 GM in Sodium Chloride 0.9% 100 ML IVPB SCH (05:00)
[2020-06-17 06:16] LABS: Anion Gap 13 mmol/L (10-20); BUN (Urea Nitrogen) 5 mg/dL (9.8-20.1); Calc. Creatinine Clearance 102 mL/min (70-130); Calcium 7.7 mg/dL (7.8-10.44); Carbon Dioxide 22 mmol/L (23-31); Chloride 110 mmol/L (98-107); Glucose 140 mg/dL (80-115); Potassium 3.6 mmol/L (3.5-5.1); Sodium 141 mmol/L (136-145)
[2020-06-17 06:21] LABS: ALT (SGPT) 31 U/L (8-55); AST (SGOT) 42 U/L (5-34); Albumin 3.7 g/dL (3.4-4.8); Alkaline Phosphatase 63 U/L (40-110); Bilirubin, Direct 0.3 mg/dL (0.1-0.3); Bilirubin, Total 0.6 mg/dL (0.2-1.2); Magnesium 2.1 mg/dL (1.6-2.6); Protein, Total 6.6 g/dL (5.8-8.1)
[2020-06-17 06:34] LABS: #Eosinphils 0.1 thou/uL (0.0-0.7); #Lymphocytes 1.4 thou/uL (1.20-3.40); #Monocytes 0.3 thou/uL (0.11-0.59); #Neutrophils 2.6 thou/uL (1.40-6.50); %Basophils 0.8 % (0.0-1.0); %Eosinophils 1.3 % (0.0-10.0); %Lymphocytes 31.6 % (21.0-51.0); %Monocytes 7.6 % (0.0-10.0); %Neutrophils 58.7 % (42.0-75.0); Anisocytosis SLIGHT = 6-15 cells (100X) (0-5/hpf); Hemoglobin 9.9 g/dL (12.0-16.0); MDiff Complete? YES; Mean Corpuscular HGB CONC 31.4 g/dL (32.0-36.0); Mean Corpuscular Hemoglobin 26.2 pg (27.0-31.0); Mean Corpuscular Volume 83.4 fL (78.0-98.0); Mean Platelet Volume 8.8 fL (7.4-10.4); Platelet Count 195 thou/uL (130-400); RBC Distribution Width 19.1 % (11.5-14.5); Red Blood Cell (RBC) Count 3.78 mill/uL (4.20-5.40); White Blood Cell (WBC) Count 4.4 thou/uL (4.8-10.8)
[2020-06-17] MEDS: Cefepime 1 GM in Sodium Chloride 0.9% 100 ML IVPB SCH (07:54)
[2020-06-17] MEDS ORDERED: Thiamine HCl 200 MG/2 ML VIAL SLOW IVP SCH (09:00)
[2020-06-17] MEDS ORDERED: Bupropion 150 MG XL TAB PO SCH (09:00)
[2020-06-17] MEDS: Gabapentin 300 MG CAP PO SCH ×2 (09:57→15:30)
[2020-06-17] MEDS: Multivit, Therapeutic 1 TAB PO SCH (09:57)
[2020-06-17] MEDS: Folic Acid 1 MG TAB PO SCH (09:57)
[2020-06-17] MEDS: Acetaminophen 325 MG TAB PO PRN (10:08)
[2020-06-17] MEDS: HumaLOG 300 UNITS/3 ML VIAL SC PRN ×2 (11:52→16:17)
[2020-06-17] MEDS ORDERED: hydrALAZINE 20 MG/ML VIAL SLOW IVP PRN (12:16)
[2020-06-17] MEDS ORDERED: cloNIDine 0.2 MG TAB PO SCH (12:16)
[2020-06-17 16:13] VITALS: BP 122/70
== END 2020-06-17 19:25 | disposition home or self-care (01) | DRG 917 ==
LOC: ERS 03:03 → CCU 03:15 → SURG A 07:27 → T4-B 12:55 → SURG A 06-17 01:05
PROVIDERS: ADMIT Internal Medicine; ATTEND Family Medicine
PROC: 02H633Z Insertion of Infusion Device into Right Atrium, Percutaneous Approach (ICD-10-PCS; principal; 2020-06-16)
PROC: 3E033XZ Introduction of Vasopressor into Peripheral Vein, Percutaneous Approach (ICD-10-PCS; 2020-06-16)
PROC: HZ2ZZZZ Detoxification Services for Substance Abuse Treatment (ICD-10-PCS; 2020-06-16)
DX: T51.91XA Toxic effect of unspecified alcohol, accidental (unintentional), initial encounter (principal); G92 Toxic encephalopathy; E87.2 Acidosis; F10.921 Alcohol use, unspecified with intoxication delirium; T43.011A Poisoning by tricyclic antidepressants, accidental (unintentional), initial encounter; T46.5X1A Poisoning by other antihypertensive drugs, accidental (unintentional), initial encounter; I95.2 Hypotension due to drugs; I10 Essential (primary) hypertension; D64.9 Anemia, unspecified; K70.30 Alcoholic cirrhosis of liver without ascites; F41.9 Anxiety disorder, unspecified; F32.9 Major depressive disorder, single episode, unspecified; E86.0 Dehydration; R73.9 Hyperglycemia, unspecified; E86.1 Hypovolemia; Z20.822 Contact with and (suspected) exposure to COVID-19; Y90.5 Blood alcohol level of 100-119 mg/100 ml; Z88.0 Allergy status to penicillin; Z98.84 Bariatric surgery status; Z71.41 Alcohol abuse counseling and surveillance of alcoholic
CPT/HCPCS: 36415; 36416; 36556; 36600; 51702; 70450; 71045; 80048; 80053; 80076; 80306; 80307; 81003; 82140; 82550; 82805; 83036; 83605; 83735; 83880; 84484; 85025; 87040; 87086; 93005; 93010; 96365; 96366; 96368; 96375; J0692; J1815; J2270; J2310; J3370; J3411; J3475; J3490; U0002